=== PATIENT | male | born 1970 | race Caucasian/White ===

== ENCOUNTER 2022-02-05 12:48 | Inpatient (IN) | payer BC ==
[~2022-02-05] VITALS: Ht 182.9 cm; Wt 87.0 kg
--- NOTE | 2022-02-05 13:14 | PM&R Post Admission Assessment ---
PM&R Date of Visit: Feb 05, 2022 PM&R Allergy/Meds/Data Review Allergies Coded Allergies: No Known Drug Allergies (Unverified , 02/05/22) Home Medications Scheduled Aspirin (Aspirin), 81 MG PO DAILY, (Reported) Atorvastatin Calcium (Lipitor), 40 MG PO HS, (Reported) Physical Exam Physical Exam Vital Signs Capillary Refill : Height, Weight, BMI Height: '" Weight: lbs. oz. kg; BMI Method: PM&R Medical Assessment & Plan REHAB/MEDICAL ASSESSMENT AND PLAN: REHAB IMPAIRMENT GROUP: [ ] ETIOLOGIC DIAGNOSIS: [ (condition that led to rehab admission) ] The comorbidities that impact the patients function and/or functional outcome by: [ ] REHAB PLAN: The patient is being admitted to our comprehensive inpatient rehabilitation facility and can tolerate the intensity of service consisting of at least: 180 minutes of therapy a day, 5 out of 7 days a week Rehab treatment will consist of: [ (write brief focus that includes physician, rehab nursing and therapies/modalitiesIPOC will have more specifics) ] The patient/family has a good understanding of our discharge process and will benefit from an interdisciplinary inpatient rehabilitation program. The patient has potential to make improvement and is in need of at least two of the following multidisciplinary therapies including but not limited to physical, occupational, speech, and prosthetics and orthotics. Additionally the patient will need services from respiratory, nutritional services, wound care, psychology, etc. (Customize this to each patient). Given the patients complex condition and risk of further medical complications, rehabilitation services cannot be safely or effectively provided at a lower level of care such as a jail facility. BARRIERS TO DISCHARGE: [ ] ESTIMATED LOS: [ ] DISPOSITION: [ ] RELEVANT CHANGES SINCE PREADMISSION SCREENING: I have compared the patients medical and functional status at the time of the preadmission screening and there are: [no changes] [changes as follows: (if there is a discrepancy between the IGC/Etiologic stated on the PAS, address/clarify this as well) ] PROGNOSIS: [ ] REHABILITATION GOALS: 1. [ (specific to the patient) ] All the above goals were reviewed with the patient and he/she is in agreement. By signing this document, I acknowledge that I have personally performed a full physical examination on this patient within 24 hours of admission to this inpatient rehabilitation facility and have determined the patient to be able to tolerate the above course of treatment at an intensive level for a reasonable period of time. I will be completing a detailed individualized Plan of Care for this patient by day #4 of the patients stay based upon the Preadmission Screen, the Post-Admission Evaluation, and the therapy evaluations. ZENON BRITTON DO Feb 05, 2022 13:14
[2022-02-05] MEDS ORDERED: FLEET ENEMA ADULT 1 EA BTL PR PRN (13:15)
[2022-02-05] MEDS ORDERED: diphenhydrAMINE 25 MG TAB (BENADRYL) PO PRN (13:15)
[2022-02-05] MEDS ORDERED: guaiFENesin/CODEINE (ROBITUSSIN AC) 10ML UDC PO PRN (13:15)
[2022-02-05] MEDS ORDERED: ALPRAZolam 0.25 MG (XANAX) TAB PO PRN (13:15)
[2022-02-05] MEDS ORDERED: LACTULOSE SYRUP 10GM/15ML (ENULOSE) 30ML UDC PO PRN (13:15)
[2022-02-05] MEDS ORDERED: LOPERAMIDE 2 MG (IMODIUM) TABLET PO PRN (13:15)
[2022-02-05] MEDS ORDERED: MELATONIN 3 MG TABLET PO PRN (13:15)
[2022-02-05] MEDS ORDERED: BISACODYL 10 MG SUPP (DULCOLAX) PR PRN (13:15)
[2022-02-05] MEDS ORDERED: ENOXAPARIN 40 MG/0.4 ML (LOVENOX) SYR SC SCH (13:15)
[2022-02-05] MEDS ORDERED: DOCUSATE SODIUM 100 MG (COLACE) CAP PO PRN (13:15)
[2022-02-05] MEDS ORDERED: ACETAMINOPHEN 325 MG TABLET PO PRN (13:15)
[2022-02-05] MEDS ORDERED: ONDANSETRON 4 MG (ZOFRAN) ORAL DISSOLVE TAB PO PRN (13:15)
[2022-02-05] MEDS ORDERED: CALCIUM CARBONATE 500 MG (TUMS) TAB.CHEW PO PRN (13:15)
[2022-02-05] MEDS ORDERED: ASPI-999 PO (13:16)
[2022-02-05] MEDS ORDERED: ATOR40TA PO (13:16)
[2022-02-06 10:50] VITALS: BP 129/84
--- NOTE | 2022-02-06 11:43 | PM&R Post Admission Assessment ---
PM&R Date of Visit: Feb 06, 2022 Time of Visit: 17:00 History of Present Illness Chief complaint: CVA HPI: This is a 51-year-old male who presented from [facility] following a CVA. Symptoms started on 02/03/2022 at 1030 which included right-sided weakness and inability to speak clearly or find the words to speak. He contacted his family who brought him to the ER at [facility] and stroke protocol followed with CT normal but an opportunity to fly to [facility] for neuro interventional radiology and when he arrived it was assessed that he would benefit from tPA instead and was given that 4 hours after presentation. He had confusion and right-sided weakness with expressive aphasia at that time. He had no complications from tPA and therapy evaluated him. He was found to be a modesta date for inpatient rehab and considering he lives in [place] we accepted him. A PFO was diagnosed on echocardiogram and he was also given an external shoe repairer helper to evaluate source of cryptogenic stroke but it does appear the PFO is highly suspected. He will be maintained on aspirin and statin. Upon arrival he is made significant improvements in his stroke deficits and now it appears that he may not require inpatient rehab but will have the therapy team evaluate him tomorrow. He does still have word finding issues but those are improving. I noted creatinine of 1.6 and patient has a significant muscular structure so will initiate work-up for elevated testosterone levels that could give rise to stroke risks. Past Tgrqitc-Xxapzn-Qrvqnn Hx Past Med/Social Hx: Reviewed Nursing Past Med/Soc Hx, Reviewed and Corrections made Patient Social History Marrital Status: Alcohol Use: Occasionally Uses Recreational Drug Use: No Smoking Status: Never a Smoker Past Medical History Neurological: Stroke (02/03/22) PM&R Allergy/Meds/Data Review Allergies Coded Allergies: No Known Drug Allergies (Unverified , 02/05/22) Home Medications Scheduled Aspirin (Aspirin), 81 MG PO DAILY, (Reported) Atorvastatin Calcium (Lipitor), 40 MG PO HS, (Reported) Current Medications Current Medications Reviewed Review of Systems Constitutional: see HPI EENTM: no symptoms reported Respiratory: no symptoms reported Cardiovascular: no symptoms reported Gastrointestinal: no symptoms reported Genitourinary: no symptoms reported Musculoskeletal: no symptoms reported Skin: no symptoms reported Psychiatric/Neurological: Numbness (right hand), Weakness (prev right side) All Other Systems Reviewed Negative Unless Noted: Yes Physical Exam Physical Exam Vital Signs Capillary Refill : Height, Weight, BMI Height: '" Weight: lbs. oz. kg; BMI Method: General Appearance: No Apparent Distress, WD/WN Eyes: Bilateral Eye Normal Inspection, Bilateral Eye PERRL HEENT: PERRL/EOMI, Normal ENT Inspection, Pharynx Normal Neck: Full Range of Motion, Normal Inspection, Non Tender, Supple, Carotid Bruit Respiratory: Chest Non Tender, Lungs Clear, Normal Breath Sounds, No Accessory Muscle Use, No Respiratory Distress Cardiovascular: Regular Rate, Rhythm, No Edema, No Gallop, No JVD, No Murmur, Normal Peripheral Pulses Gastrointestinal: Normal Bowel Sounds, No Organomegaly, No Pulsatile Mass, Non Tender, Soft Back: Normal Inspection, No CVA Tenderness, No Vertebral Tenderness Extremity: Normal Capillary Refill, Normal Inspection, Normal Range of Motion, Non Tender, No Calf Tenderness, No Pedal Edema Neurologic/Psychiatric: Alert, Oriented x3, No Motor/Sensory Deficits, Normal Mood/Affect, confidential secretary II-XII Norm as Tested, Sensory Deficit (right fingers), Other (Expressive aphasia and word finding difficulties) Skin: Normal Color, Warm/Dry Lymphatic: No Adenopathy PM&R Medical Assessment & Plan REHAB/MEDICAL ASSESSMENT AND PLAN: REHAB IMPAIRMENT GROUP: CVA ETIOLOGIC DIAGNOSIS: CVA The comorbidities that impact the patients function and/or functional outcome by: Elevated creatinine, increased muscle mass ruling out exogenous testoster one/testicular dysfunction REHAB PLAN: The patient is being admitted to our comprehensive inpatient rehabilitation facility and can tolerate the intensity of service consisting of at least: 180 minutes of therapy a day, 5 out of 7 days a week Rehab treatment will consist of: PT and OT and speech will evaluate patient to assess any residual stroke affect but it appears tPA has resolved most issues except for word finding The patient/family has a good understanding of our discharge process and will benefit from an interdisciplinary inpatient rehabilitation program. The patient has potential to make improvement and is in need of at least two of the following multidisciplinary therapies including but not limited to physical, occupational, speech, and prosthetics and orthotics. Additionally the patient will need services from respiratory, nutritional services, wound care, psychology, etc. (Customize this to each patient). Given the patients complex condition and risk of further medical complications, rehabilitation services cannot be safely or effectively provided at a lower level of care such as a fpc facility. BARRIERS TO DISCHARGE: None ESTIMATED LOS: 3 days DISPOSITION: Home RELEVANT CHANGES SINCE PREADMISSION SCREENING: I have compared the patients medical and functional status at the time of the preadmission screening and there are: No changes PROGNOSIS: Good REHABILITATION GOALS: 1. PT and OT and speech will evaluate patient to assess any residual stroke affect but it appears tPA has resolved most issues except for word finding All the above goals were reviewed with the patient and he/she is in agreement. By signing this document, I acknowledge that I have personally performed a full physical examination on this patient within 24 hours of admission to this inpatient rehabilitation facility and have determined the patient to be able to tolerate the above course of treatment at an intensive level for a reasonable period of time. I will be completing a detailed individualized Plan of Care for this patient by day #4 of the patients stay based upon the Preadmission Screen, the Post-Admission Evaluation, and the therapy evaluations. Admission Dx/Comorbidities: (1) CVA (cerebral vascular accident) ICD Codes: I63.9 - Cerebral infarction, unspecified (2) PFO (patent foramen ovale) ICD Codes: Q21.12 - Patent foramen ovale (3) Renal insufficiency ICD Codes: N28.9 - Disorder of kidney and ureter, unspecified Assessment/Plan Assessment and Plan Assess & Plan/Chief Complaint Assessment: CVA status post tPA at [facility] on 02/03/2022 4 hours after symptoms after [facility] from [facility] in case neuro interventional radiology was required for cath tPA Right-sided weaknessresolved Expressive aphasiadramatically improved Word findingstill issues consulting speech therapy PFO on [facility] work-up consulting Dr. Tobar for referral for repair Elevated creatinine 1.6 performing work-up Increase muscle masswork-up for exogenous testosterone Oral tobacco use Plan: Dr. Tobar consult for PFO referral Work-up for kidney dysfunction Supportive care ZENON BRITTON DO Feb 06, 2022 11:43
[2022-02-06] MEDS: DOCUSATE SODIUM 100 MG (COLACE) CAP PO SCH ×3 (11:50→21:52)
[2022-02-06] MEDS: polyethylene glycoL POWDER 17 GM (MIRALAX) PACK PO SCH ×2 (11:51→21:55)
[2022-02-06] MEDS: SENNA W/DOCUSATE (SENOKOT S) TABLET PO SCH ×2 (11:51→21:53)
[2022-02-06] MEDS ORDERED: ENOXAPARIN 40 MG/0.4 ML (LOVENOX) SYR SC SCH ×2 (14:00)
[2022-02-06 17:33] LABS: ALBUMIN 4.2 GM/DL (3.2-4.5)
[2022-02-06 17:34] LABS: POTASSIUM 4.2 MMOL/L (3.6-5.0)
[2022-02-06 17:35] LABS: CALCIUM 9.5 MG/DL (8.5-10.1)
[2022-02-06 17:36] LABS: TOTAL PROTEIN 7.3 GM/DL (6.4-8.2)
[2022-02-06 17:38] LABS: BILIRUBIN,TOTAL 0.5 MG/DL (0.1-1.0)
[2022-02-06 17:40] LABS: CREATININE SERUM 1.65 MG/DL (0.60-1.30)
[2022-02-06 17:47] LABS: BASOPHILS % (AUTO) 0 % (0-10); EOSINOPHILS # (AUTO) 0.1 10^3/uL (0.0-0.3); EOSINOPHILS % (AUTO) 1 % (0-10); HEMATOCRIT 46 % (40-54); HEMOGLOBIN 15.6 g/dL (13.3-17.7); LYMPHOCYTES # (AUTO) 1.4 10^3/uL (1.0-4.0); LYMPHOCYTES % (AUTO) 19 % (12-44); MEAN CORPUSCULAR HEMOGLOBIN 31 pg (25-34); MEAN CORPUSCULAR HGB CONC 34 g/dL (32-36); MEAN CORPUSCULAR VOLUME 91 fL (80-99); MONOCYTES # (AUTO) 0.7 10^3/uL (0.0-1.0); MONOCYTES % (AUTO) 10 % (0-12); NEUTROPHILS # (AUTO) 4.8 10^3/uL (1.8-7.8); NEUTROPHILS % (AUTO) 68 % (42-75); PLATELET COUNT 300 10^3/uL (130-400); WHITE BLOOD COUNT 7.1 10^3/uL (4.3-11.0)
[2022-02-06 20:57] VITALS: BP 155/62
[2022-02-07 07:45] LABS: CREATININE SERUM 1.4 MG/DL (0.60-1.30); POTASSIUM 3.7 MMOL/L (3.6-5.0)
[2022-02-07 07:53] VITALS: BP 112/79
[2022-02-07] MEDS ORDERED: ASPIRIN 81 MG CHEW (CHILDREN'S ASA) PO SCH (09:00)
[2022-02-07] MEDS: polyethylene glycoL POWDER 17 GM (MIRALAX) PACK PO SCH (09:04)
[2022-02-07 10:26] LABS: BILIRUBIN,URINE NEGATIVE (NEGATIVE); CLARITY,URINE CLEAR; COLOR,URINE YELLOW; GLUCOSE, URINE (UA) NEGATIVE (NEGATIVE); KETONES,URINE NEGATIVE (NEGATIVE); LEUKOCYTE ESTERASE ,URINE NEGATIVE (NEGATIVE); NITRITE,URINE NEGATIVE (NEGATIVE); PH,URINE 6.5 (5-9); PROTEIN,URINE NEGATIVE (NEGATIVE)
--- NOTE | 2022-02-07 10:26 | Occupational Therapy Eval ---
OT Evaluation-General/PLF Medical Diagnosis Admission Date Feb 06, 2022 at 10:45 Medical Diagnosis: CVA Onset Date: Feb 03, 2022 Therapy Diagnosis Therapy Diagnosis: expressive aphasia Precautions Precautions/Isolations: Standard Precautions Referral Physician: Debby Luna Reason: Evaluation/Treatment Medical History Current History Pt presents from [facility] following a CVA. His symptoms were R sided weakness and expressive aphasia. He received tPA. Pt paranoid with all questions regarding PLOF. 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 Reviewed History: Yes Social History Home: [facility] Current Living Status: Alone ADL-Prior Level of Function SCALE: Activities may be completed with or without assistive devices. 4-Cwtwsjqmqn-euendrj completes the activity by him/herself with no assistance from a helper. 5-Set-up or Clean-up Assistance-helper sets up or cleans up; patient completes activity. [place] assists only prior to or following the activity. 4-Supervision or Touching Assistance-helper provides verbal cues and/or touching/steadying and/or contact guard assistance as patient completes acti vity. Assistance may be provided throughout the activity or intermittently. 3-Partial/Moderate Assistance-helper does LESS THAN HALF the effort. [place] lifts, holds or supports trunk or limbs, but provides less than half the effort. 2-Substantial/Maximal Assistance-helper does MORE THAN HALF the effort. [place] lifts or holds trunk or limbs and provides more than half the effort. 8-Rvyjjwznf-wftfql does ALL the effort. Patient does none of the effort to complete the activity. Or, the assistance of 2 or more helpers is required for the patient to complete the activity. If activity was not attempted, code reason: 7-Patient Refused. 9-Not Applicable-not attempted and the patient did not perform the activity before the current illness, exacerbation or injury. 10-Not Attempted due to Environmental Limitations-(lack of equipment, weather restraints, etc.). 88-Not Attempted due to Medical Conditions or Safety Concerns. Self Care: Independent Functional Cognition: Independent Drive Self: Yes OT Current Status Subjective Pt denies pain, reluctant to participate. Appearance Pt left sitting on side of bed with physical therapist entering room. Mental Status/Objective Patient Orientation: Person, Place, Situation Current Hearing Aids: No Dentures/Partials: No Hand Dominance: Right Upper Extremity ROM WFL Upper Extremity Strength WFL Epilepsy Physician strength: R 160 pounds, L 165 pounds, above average. ADL-Treatment Eating (QC): 6 Oral Hygiene (QC): 6 Shower/Bathe Self (QC): 6 Upper Body Dressing (QC): 6 Lower Body Dressing (QC): 6 On/Off Footwear (QC): 6 Toileting Hygiene (QC): 6 Pt independent with all adls and functional mobility. He refused shower but reports he was indep with taking one last night. He denies any vision changes and expresses that his only difficulty is his communication. Pt does have expressive aphasia. Education provided on stroke management. OT did provide him with green theraputty as pt verbalizes that his R hand is still minimally numb. Education OT Patient Education: Correct positioning, Exercise program, Purpose of tx/functional activities Teaching Recipient: Patient Teaching Methods: Discussion Response to Teaching: Verbalize Understanding, Return Demonstration BIMS CAM BIMS Expression of Ideas and Wants: Frequently Understanding Verbal Content: Understands Brief Interview/Mental Status: Yes IRF HARINI BIMS: IRF HARINI BIMS Response (Comments) Value Repitition of Three Words Three 3 Recalls Socks Yes, No Cue Required 2 Recalls Blue Yes, No Cue Required 2 Recalls Bed Yes, No Cue Required 2 Year Correct 3 Month Accurate Within 5 Days 2 Day Correct 1 Total 15 [address] Staff Asses. Mental St[address] No Notes: Pt does have difficulty getting words out but he was able to point while also trying to verbalize correct word (for example, pointing to sock but initially stated "sought" CAM Mental Status Change/Baseline: 0 Inattention: 0 Disorganized thinkin Altered level of consciousness: 0 OT Short Term Goals Short Term Goals Time Frame: Feb 07, 2022 Eatin Oral hygiene: 6 Toileting hygiene: 6 Shower/bathe self: 6 Upper body dressin Lower body dressin Putting on/taking off footwear: 6 OT Chain Sales Representative Goals Detention Goals Time Frame: Feb 08, 2022 Eating (QC): 6 Oral Hygiene (QC): 6 Toileting Hygiene (QC): 6 Shower/Bathe Self (QC): 6 Upper Body Dressing (QC): 6 Lower Body Dressing (QC): 6 On/Off Footwear (QC): 6 Additional Goals: 1-Demonstrate ADL Tasks, 2-Verbalize Understanding, 3- ImproveStrength/Steff 1=Demonstrate adherence to instructed precautions during ADL tasks. 2=Patient will verbalize/demonstrate understanding of assistive devices/modifications for ADL. 3=Patient will improve strength/tolerance for activity to enable patient to perform ADL's. OT Education/Plan Problem List/Assessment Assessment: No Skilled OT Needs ID'd Discharge Recommendations Plan/Recommendations: Discontinue OT Therapy Discharge Recommendati: Other, See Comments (outpatient speech therapy ) Treatment Plan/Plan of Care Treatment,Training & Education: Yes Patient would benefit from OT for education, treatment and training to promote independence in ADL's, mobility, safety and/or upper extremity function for ADL's. Plan of Care: ADL Retraining, Cognitive Retraining Treatment Duration: Feb 08, 2022 Frequency: 1 time per week Estimated Hrs Per Day: 1.5 hours per day Agreement: Yes Rehab Potential: Good Time Start Time: 09:15 Stop Time: 10:20 DATE: Feb 07, 2022 Total Time Billed (hr/min): 65 Billed Treatment Time 1 visit EVL (15 min) ADL x3 (50 min) Sully Puente OT Feb 07, 2022 10:26
[2022-02-07 10:33] LABS: BACTERIA,URINE NEGATIVE /HPF
--- NOTE | 2022-02-07 10:44 | Physical Therapy Evaluation ---
PT Evaluation-General Medical Diagnosis Admission Date Feb 06, 2022 at 10:45 Medical Diagnosis: CVA Onset Date: Feb 03, 2022 Therapy Diagnosis Therapy Diagnosis: independent with mobility Precautions Precautions/Isolations: Standard Precautions Referral Physician: Missy Guardado DO Reason for Referral: Evaluation/Treatment Medical History Reviewed History: Yes Social History Home: [facility] Current Living Status: Alone Prior Prior Level of Function SCALE: Activities may be completed with or without assistive devices. 7-Ajxnhqanew-wzafnxc completes the activity by him/herself with no assistance from a helper. 5-Set-up or Clean-up Assistance-helper sets up or cleans up; patient completes activity. [place] assists only prior to or following the activity. 4-Supervision or Touching Assistance-helper provides verbal cues and/or touching/steadying and/or contact guard assistance as patient completes activity. Assistance may be provided throughout the activity or intermittently. 3-Partial/Moderate Assistance-helper does LESS THAN HALF the effort. [place] lifts, holds or supports trunk or limbs, but provides less than half the effort. 2-Substantial/Maximal Assistance-helper does MORE THAN HALF the effort. [place] lifts or holds trunk or limbs and provides more than half the effort. 4-Tjhjvsdnm-xmswzj does ALL the effort. Patient does none of the effort to complete the activity. Or, the assistance of 2 or more helpers is required for the patient to complete the activity. If activity was not attempted, code reason: 7-Patient Refused. 9-Not Applicable-not attempted and the patient did not perform the activity before the current illness, exacerbation or injury. 10-Not Attempted due to Environmental Limitations-(lack of equipment, weather restraints, etc.). 88-Not Attempted due to Medical Conditions or Safety Concerns. Bed Mobility: 6 Transfers (B,C,W/C): 6 Gait: 6 Stairs: 6 Indoor Mobility (Ambulation): Independent Stairs: Independent PT Evaluation-Current Subjective Patient sitting EOB pre tx, agrees to PT, has no complaints of pain. Pain Section J - Health Conditions 1. Rarely or not at all 2. Occasionally 3. Frequently 4. Almost constantly 8. Unable to answer Pain Effect on Sleep: 1 Pain Interference with Therapy: 1 Pain Interference w/Day-to-Day: 1 Pt/Family Goals none stated Objective Patient Orientation: Person, Place, Situation ROM/Strength ROM Lower Extremities WNL Strength Lower Extremities LLE (hip flexion 5/5, knee flexion 5/5, knee extension 5/5, dorsiflexion 5/5), RLE (hip flexion 5/5, knee flexion 5/5, knee extension 5/5, dorsiflexion 5/5) Neuromuscular (Tone, Coordination, Reflexes) patient has intact peripheral vision and tracking Sensory Vision: Functional Hearing: Functional Hand Dominance: Right Sensation Right Lower Extremit: Intact Sensation Left Lower Extremity: Intact Sensation Lower Extremities Patient does have some complaints of numbness in right hand. Transfers Roll Left & Right (QC): 6 Sit to Lying (QC): 6 Lying to Sitting/Side of Bed(Q: 6 Sit to Stand (QC): 6 Chair/Wcq-eq-Emkvg Xfer(QC): 6 Toilet Transfer (QC): 6 Car Transfer (QC): 6 Independent, no cues needed for safety or positioning Gait Walk 10 feet (QC): 6 Walk 50 ft with 2 Turns(QC): 6 Walk 150 ft (QC): 6 Walking 10ft/uneven surface-QC: 6 Distance: 300' Gait Assistive Device: None Comments/Gait Description independent without an assistive device, brisk, normal ambulation Wheelchair Training Wheel 50 ft with 2 turns (QC): 9 Wheel 150 ft (QC): 9 Stairs 1 Step (curb) (QC): 6 4 Steps (QC): 6 12 Steps (QC): 6 no rails used, independent Balance Picking up an Object (QC): 6 (no physical therapist assistant used) Special Test Comments Patient scored 56/56 on the Gomez Balance Scale Assessment/Needs Patient is independent with all mobility and got a perfect score on the Gomez Balance Scale. Patient will be discharged from PT services at this time. Rehab Potential: Good PT Jail Goals Manager Msw Goals PT Jail Goals Time Frame: Feb 07, 2022 Roll Left to Right (QC): 6 Sit to Lying (QC): 6 Lying-Sitting on Side/Bed(QC): 6 Sit to Stand (QC): 6 Chair/Obq-fq-Vagoo Xfer(QC): 6 Toilet/Commode Transfer (QC): 6 Car Transfer (QC): 6 Walk 10 feet (QC): 6 Walk 10ft-Uneven Surface(QC): 6 Walk 50ft with 2 Turns (QC): 6 Walk 150 ft (QC): 6 Wheel 50 feet with 2 turns (QC: 9 Wheel 150 feet: 9 1 Step (curb) (QC): 6 4 Steps (QC): 6 12 Steps (QC): 6 Picking up an Object (QC): 6 PT Plan Treatment/Plan Treatment Plan: Discontinue PT Treatment Duration: Feb 07, 2022 Frequency: Patient and/or Family Agrees t: Yes Discharge Recommendations Plan discharge Therapy Discharge Recommendati: Home & Family Time Time In: 1020 Time Out: 1035 DATE: Feb 07, 2022 Total Billed Treatment Time: 15 Total Billed Treatment 1 visit EVL 15' ARIE ALLEN PT Feb 07, 2022 10:44
[2022-02-07] MEDS: SENNA W/DOCUSATE (SENOKOT S) TABLET PO SCH (11:29)
[2022-02-07] MEDS: DOCUSATE SODIUM 100 MG (COLACE) CAP PO SCH (11:29)
--- NOTE | 2022-02-07 11:46 | Therapy Team Discharge Summary ---
Therapy Discharge Summary Discharge Recommendations Date of Discharge Physical Therapy Patient came to rehab post CVA. Upon evaluation patient performed rolling and supine <-> sit with independence, sit <-> stand and transfers independent, car transfer independent, ambulates 300' without an assistive device with in dependence (including 50' with at least 2 turns of 90 degrees and 10' over an uneven surface), can go up and down 12 steps without using handrails with independence, and can pick up operator an object from the floor with independence. Patient scored 56/56 on the Gomez Balance Scale. Patient is being discharged from this facility today (same day as evaluation, no other treatment rendered) a nd will be discharged from PT at this time. Roll Left to Right (QC): 6 Sit to Lying (QC): 6 Lying to Sitting/Side of Bed(Q: 6 Sit to Stand (QC): 6 Chair/Mzt-dy-Xvbja Xfer(QC): 6 Toilet Transfer (QC): 6 Car Transfer (QC): 6 Walk 10 feet (QC): 6 Walk 50 ft with 2 Turns(QC): 6 Walk 150 ft (QC): 6 Walking 10ft on uneven surface: 6 Distance: 300' Gait Assistive Device: None Wheel 50 ft with 2 turns (QC): 9 Wheel 150 ft (QC): 9 1 Step (curb) (QC): 6 4 Steps (QC): 6 12 Steps (QC): 6 Picking up an Object (QC): 6 (no airplane electrician used) Occupational Therapy No Skilled OT Needs ID'd Eating (QC): 6 Oral Hygiene (QC): 6 Shower/Bathe Self (QC): 6 Upper Body Dressing (QC): 6 Lower Body Dressing (QC): 6 On/Off Footwear (QC): 6 Toileting Hygiene (QC): 6 PT Snf Goals Choreography Director Goals PT Choreography Director Goals Time Frame: Feb 07, 2022 Roll Left to Right (QC): 6 Sit to Lying (QC): 6 Lying-Sitting on Side/Bed(QC): 6 Sit to Stand (QC): 6 Chair/Bwd-er-Xqosq Xfer(QC): 6 Toilet/Commode Transfer (QC): 6 Car Transfer (QC): 6 Walk 10 feet (QC): 6 Walk 10ft-Uneven Surface(QC): 6 Walk 50ft with 2 Turns (QC): 6 Walk 150 ft (QC): 6 Wheel 50 feet with 2 turns (QC: 9 Wheel 150 feet: 9 1 Step (curb) (QC): 6 4 Steps (QC): 6 12 Steps (QC): 6 Picking up an Object (QC): 6 OT Snf Goals Snf Goals Time Frame: Feb 08, 2022 Acute change in mental status: 0 Inattention: 0 Disorganized thinkin Altered level of consciousness: 0 Eating (QC): 6 Oral Hygiene (QC): 6 Toileting Hygiene (QC): 6 Shower/Bathe Self (QC): 6 Upper Body Dressing (QC): 6 Lower Body Dressing (QC): 6 On/Off Footwear (QC): 6 Additional Goals: 1-Demonstrate ADL Tasks, 2-Verbalize Understanding, 3- ImproveStrength/Steff 1=Demonstrate adherence to instructed precautions during ADL tasks. 2=Patient will verbalize/demonstrate understanding of assistive devices/modifications for ADL. 3=Patient will improve strength/tolerance for activity to enable patient to perform ADL's. ARIE ALLEN PT Feb 07, 2022 11:46
[2022-02-07 12:00] VITALS: BP 112/79
[2022-02-07] MEDS ORDERED: ATOR40TA PO (12:01)
[2022-02-07] MEDS ORDERED: ASPI-999 PO (12:01)
--- NOTE | 2022-02-07 12:03 | Discharge Summary ---
Diagnosis/Chief Complaint Date of Admission Feb 06, 2022 at 10:45 Date of Discharge Discharge Date: Feb 07, 2022 Discharge Summary Discharge Physical Examination Allergies: Coded Allergies: No Known Drug Allergies (Unverified , 02/05/22) Vitals & I&Os Vital Signs Date Time Temp Pulse Resp B/P (MAP) Pulse Ox O2 Delivery O2 Flow Rate FiO2 02/07/22 07:53 36.2 63 18 112/79 (90) 97 Room Air Hospital Course Labs (last 24 hrs) Laboratory Tests 02/06/22 14:45: White Blood Count 7.1, Red Blood Count 5.02, Hemoglobin 15.6, Hematocrit 46, Mean Corpuscular Volume 91, Mean Corpuscular Hemoglobin 31, Mean Corpuscular Hemoglobin Concent 34, Red Cell Distribution Width 13.2, Platelet Count 300, Mean Platelet Volume 12.0, Immature Granulocyte % (Auto) 2, Neutrophils (%) (Auto) 68, Lymphocytes (%) (Auto) 19, Monocytes (%) (Auto) 10, Eosinophils (%) (Auto) 1, Basophils (%) (Auto) 0, Neutrophils # (Auto) 4.8, Lymphocytes # (Auto) 1.4, Monocytes # (Auto) 0.7, Eosinophils # (Auto) 0.1, Basophils # (Auto) 0.0, Immature Granulocyte # (Auto) 0.1, Sodium Level 140, Potassium Level 4.2, Chloride Level 106, Carbon Dioxide Level 25, Anion Gap 9, Blood Urea Nitrogen 15, Creatinine 1.65H, Estimat Glomerular Filtration Rate 50, BUN/Creatinine Ratio 9, Glucose Level 75, Calcium Level 9.5, Corrected Calcium 9.3, Total Bilirubin 0.5, Aspartate Amino Transf (AST/SGOT) 29, Alanine Aminotransferase (ALT/SGPT) 31, Alkaline Phosphatase 54, Total Protein 7.3, Albumin 4.2 02/07/22 06:58: Sodium Level 138, Potassium Level 3.7, Chloride Level 108H, Carbon Dioxide Level 23, Anion Gap 7, Blood Urea Nitrogen 15, Creatinine 1.40H, Estimat Glomerular Filtration Rate 60, BUN/Creatinine Ratio 11, Glucose Level 82, Calcium Level 9.0, Uric Acid 5.0, Lactate Dehydrogenase 185, Total Creatine Kinase 141, Serum Test, Qualitative NEGATIVE 02/07/22 07:40: Urine Color YELLOW, Urine Clarity CLEAR, Urine pH 6.5, Urine Specific [place] 1.020, Urine Protein NEGATIVE, Urine Glucose (UA) NEGATIVE, Urine Ketones NEGATIVE, Urine Nitrite NEGATIVE, Urine Bilirubin NEGATIVE, Urine Urobilinogen 0.2, Urine Leukocyte Esterase NEGATIVE, Urine RBC (Auto) NEGATIVE, Urine RBC NONE, Urine WBC NONE, Urine Crystals NONE, Urine Bacteria NEGATIVE, Urine Casts NONE, Urine Mucus NEGATIVE, Urine Culture Indicated NO Pending Labs Laboratory Tests 02/06/22 14:45: White Blood Count 7.1, Red Blood Count 5.02, Hemoglobin 15.6, Hematocrit 46, Mean Corpuscular Volume 91, Mean Corpuscular Hemoglobin 31, Mean Corpuscular Hemoglobin Concent 34, Red Cell Distribution Width 13.2, Platelet Count 300, Mean Platelet Volume 12.0, Immature Granulocyte % (Auto) 2, Neutrophils (%) (Auto) 68, Lymphocytes (%) (Auto) 19, Monocytes (%) (Auto) 10, Eosinophils (%) (Auto) 1, Basophils (%) (Auto) 0, Neutrophils # (Auto) 4.8, Lymphocytes # (Auto) 1.4, Monocytes # (Auto) 0.7, Eosinophils # (Auto) 0.1, Basophils # (Auto) 0.0, Immature Granulocyte # (Auto) 0.1, Sodium Level 140, Potassium Level 4.2, Chloride Level 106, Carbon Dioxide Level 25, Anion Gap 9, Blood Urea Nitrogen 15, Creatinine 1.65, Estimat Glomerular Filtration Rate 50, BUN/Creatinine Ratio 9, Glucose Level 75, Calcium Level 9.5, Corrected Calcium 9.3, Total Bilirubin 0.5, Aspartate Amino Transf (AST/SGOT) 29, Alanine Aminotransferase (ALT/SGPT) 31, Alkaline Phosphatase 54, Total Protein 7.3, Albumin 4.2 02/07/22 06:58: Sodium Level 138, Potassium Level 3.7, Chloride Level 108, Carbon Dioxide Level 23, Anion Gap 7, Blood Urea Nitrogen 15, Creatinine 1.40, Estimat Glomerular Filtration Rate 60, BUN/Creatinine Ratio 11, Glucose Level 82, Calcium Level 9.0, Uric Acid 5.0, Lactate Dehydrogenase 185, Total Creatine Kinase 141, Triglycerides Level [Pending], Cholesterol Level [Pending], LDL Cholesterol Direct [Pending], VLDL Cholesterol [Pending], HDL Cholesterol [Pending], Luteinizing Hormone [Pending], Testosterone Level [Pending], Free Testosterone (Calc) [Pending], Sex Hormone Binding Globulin [Pending], Serum Test, Qualitative NEGATIVE 02/07/22 07:40: Urine Color YELLOW, Urine Clarity CLEAR, Urine pH 6.5, Urine Specific [place] 1.020, Urine Protein NEGATIVE, Urine Glucose (UA) NEGATIVE, Urine Ketones NEGATIVE, Urine Nitrite NEGATIVE, Urine Bilirubin NEGATIVE, Urine Urobilinogen 0.2, Urine Leukocyte Esterase NEGATIVE, Urine RBC (Auto) NEGATIVE, Urine RBC NONE, Urine WBC NONE, Urine Crystals NONE, Urine Bacteria NEGATIVE, Urine Casts NONE, Urine Mucus NEGATIVE, Urine Culture Indicated NO Discharge Home Medications: Active Scripts Active Lipitor (Atorvastatin Calcium) 40 Mg Tablet 40 Mg PO HS Aspirin 81 Mg Tab.chew 81 Mg PO DAILY Instructions to patient/family Please see electronic discharge instructions given to patient. Diagnosis/Problems Diagnosis/Problems (1) CVA (cerebral vascular accident) Qualifiers: Qualified Codes: I63.9 - Cerebral infarction, unspecified (2) PFO (patent foramen ovale) (3) Renal insufficiency ZENON BRITTON DO Feb 07, 2022 12:03
--- NOTE | 2022-02-07 13:56 | ST Cognitive Linguistic Eval ---
Speech Evaluation-General Medical Diagnosis CVA Onset Date: Feb 03, 2022 Therapy Diagnosis Therapy Diagnosis: Expressive Aphasia Precautions Precautions/Isolations: Standard Precautions Referral Referring Physician: Dr. Guardado Reason for Referral: Evaluation/Treatment Medical History Current History The patient is a 51 year-old male, who presented to the ARU following a CVA with right sided weakness and expressive aphasia. Reviewed History: Yes Social History Current Living Status: Alone Speech PLF-Current Status Prior Level of Function Per patient, he did not experience word-finding difficulties prior to his stroke. The patient stated, "I didn't have the biggest vocabulary but it was okay." The patient denied challenges in the areas of receptive language, cognition, or oropharyngeal swallowing. Subjective The patient was seated at the edge of his bed or walking throughout his room during the evaluation. The patient greeted the clinician appropriately and was agreeable to participation in the language evaluation. Language Eval: Auditory Comprehends Simple Yes/No Ques: Functional Indent/Objects Multiple [place]: Functional (Paraphasia present.) Follows 1-Step Commands: Functional Follows General Conversations: Mild (Verbal redirection required.) Language Eval: Verbal Language Completes Spontaneous Greeting: Functional Produces Auto, Serial Info: Functional Word Finding: Moderate Requests Basic Needs: Mild (Gestures to aid in communication.) States Basic Personal Info: Functional (Paraphasia present.) Language Evaluation: Reading Comprehends Single Nouns: Functional Follows Simple Written Direct: Functional Comprehends Multiple Sentences: Functional Objective Cognitive Domain A complete cognitive assessment is recommended following improvement of word-finding skills. Objective Formal/Standardized Tests Unfortunately, the UMS ([facility] Mental Status Exam) could not be completed due to the patient's persistence with word-finding difficulties. Oral Motor/Speech Production The patient does not display dysarthria at this time. Impression The patient demonstrated moderate expressive aphasia with the presence of frequent anomia and paraphasia (whole word, single phoneme) appreciated. The clinician provided education to the patient regarding expressive aphasia, as well as, treatment options and strategies to improve the difficulty he is experiencing. At times, the evaluation was difficult to complete, as the patient continued to discuss his word0-finding difficulties and increased anxiety with the clinician. Frequent verbal re-direction was provided throughout the evaluation. Speech-Plan Treatment Plan Speech Therapy Treatment Plan: Discontinue ST (The patient is discharging on this date. Plan of Care not initiated by the clinician.) Treatment Duration: Feb 07, 2022 Frequency: 1 time per week Estimated Hrs Per Day: .5 hour per day Rehab Potential: Good Safety Risks/Education Teaching Recipient: Patient Teaching Methods: Demonstration, Handout, Discussion Response to Teaching: Verbalize Understanding, Return Demonstration Education Topics Provided: Results, Recommendations, Plan of Care, Word Finding Strategies, Word Finding Handouts Time Speech Therapy Time In: 10:35 Speech Therapy Time Out: 11:15 DATE: Feb 07, 2022 Total Billed Time: 40 Billed Treatment Time 1, LEXY MEHTA ELIZABETH ST Feb 07, 2022 13:56
--- NOTE | 2022-02-07 14:03 | Consultation-Cardiology ---
HPI-Cardiology Cardiology Consultation Date of Consultation 02/07/22 Date of Admission Time Seen by Provider: 13:58 Indication: Acute CVA HPI 51 years old gentleman with no significant past medical history, suffered from acute CVA on February 03, 2022 with right-sided weakness and slurred speech. Patient received tPA. Had resolution of his weakness but continued to have some level of slurred speech. He denied any previous cardiac history. Had no complication from the tPA. Patient was transferred for acute rehab. PFO was diagnosed by echocardiogram, has a heart monitor externally. He is maintained on aspirin and statin. Home Medications & Allergies Allergies: Coded Allergies: No Known Drug Allergies (Unverified , 02/05/22) Home Medication List Reviewed: Yes [id number] Hx Patient Social History Marital Status: Recreational Drug Use: No Smoking Status: Never a Smoker Have you traveled recently?: No Alcohol Use?: No Past Medical History No significant past history Family Medical History Significant Family History: No Pertinent Family Hx Review of Systems-General Review of Systems Constitutional: see HPI EENTM: no symptoms reported Respiratory: no symptoms reported Cardiovascular: no symptoms reported Gastrointestinal: no symptoms reported Genitourinary: no symptoms reported Musculoskeletal: no symptoms reported Skin: no symptoms reported Psychiatric/Neurological: Numbness (right hand), Weakness (prev right side) All Other Systems Reviewed Negative Unless Noted: Yes Reviewed Test Results Reviewed Test Results Lab Laboratory Tests Test 02/06/22 14:45 02/07/22 06:58 02/07/22 07:40 Range/Units White Blood Count 7.1 4.3-11.0 10^3/uL Red Blood Count 5.02 4.30-5.52 10^6/uL Hemoglobin 15.6 13.3-17.7 g/dL Hematocrit 46 40-54 % Mean Corpuscular Volume 91 80-99 fL Mean Corpuscular Hemoglobin 31 25-34 pg Mean Corpuscular Hemoglobin Concent 34 32-36 g/dL Red Cell Distribution Width 13.2 10.0-14.5 % Platelet Count 300 130-400 10^3/uL Mean Platelet Volume 12.0 9.0-12.2 fL Immature Granulocyte % (Auto) 2 % Neutrophils (%) (Auto) 68 42-75 % Lymphocytes (%) (Auto) 19 12-44 % Monocytes (%) (Auto) 10 0-12 % Eosinophils (%) (Auto) 1 0-10 % Basophils (%) (Auto) 0 0-10 % Neutrophils # (Auto) 4.8 1.8-7.8 10^3/uL Lymphocytes # (Auto) 1.4 1.0-4.0 10^3/uL Monocytes # (Auto) 0.7 0.0-1.0 10^3/uL Eosinophils # (Auto) 0.1 0.0-0.3 10^3/uL Basophils # (Auto) 0.0 0.0-0.1 10^3/uL Immature Granulocyte # (Auto) 0.1 0.0-0.1 10^3/uL Sodium Level 140 138 135-145 MMOL/L Potassium Level 4.2 3.7 3.6-5.0 MMOL/L Chloride Level 106 108 H 98-107 MMOL/L Carbon Dioxide Level 25 23 21-32 MMOL/L Anion Gap 9 7 5-14 MMOL/L Blood Urea Nitrogen 15 15 7-18 MG/DL Creatinine 1.65 H 1.40 H 0.60-1.30 MG/DL Estimat Glomerular Filtration Rate 50 60 BUN/Creatinine Ratio 9 11 Glucose Level 75 82 70-105 MG/DL Calcium Level 9.5 9.0 8.5-10.1 MG/DL Corrected Calcium 9.3 8.5-10.1 MG/DL Total Bilirubin 0.5 0.1-1.0 MG/DL Aspartate Amino Transf (AST/SGOT) 29 5-34 U/L Alanine Aminotransferase (ALT/SGPT) 31 0-55 U/L Alkaline Phosphatase 54 40-136 U/L Total Protein 7.3 6.4-8.2 GM/DL Albumin 4.2 3.2-4.5 GM/DL Uric Acid 5.0 2.6-7.2 MG/DL Lactate Dehydrogenase 185 125-220 U/L Total Creatine Kinase 141 30-200 U/L Serum Test, Qualitative NEGATIVE Urine Color YELLOW Urine Clarity CLEAR Urine pH 6.5 5-9 Urine Specific [place] 1.020 1.016-1.022 Urine Protein NEGATIVE NEGATIVE Urine Glucose (UA) NEGATIVE NEGATIVE Urine Ketones NEGATIVE NEGATIVE Urine Nitrite NEGATIVE NEGATIVE Urine Bilirubin NEGATIVE NEGATIVE Urine Urobilinogen 0.2 < = 1.0 MG/DL Urine Leukocyte Esterase NEGATIVE NEGATIVE Urine RBC (Auto) NEGATIVE NEGATIVE Urine RBC NONE /HPF Urine WBC NONE /HPF Urine Crystals NONE /LPF Urine Bacteria NEGATIVE /HPF Urine Casts NONE /LPF Urine Mucus NEGATIVE /LPF Urine Culture Indicated NO Physical Exam Physical Exam Vital Signs Vital Signs - First Documented 02/06/22 10:50 Temp 36.8 Pulse 57 Resp 20 B/P (MAP) 129/84 (99) Pulse Ox 100 O2 Delivery Room Air Capillary Refill : Height, Weight, BMI Height: '" Weight: lbs. oz. kg; 26.00 BMI Method: General Appearance: No Apparent Distress, WD/WN Eyes: Bilateral Eye Normal Inspection, Bilateral Eye PERRL HEENT: PERRL/EOMI, Normal ENT Inspection, Pharynx Normal Neck: Full Range of Motion, Normal Inspection, Non Tender, Supple, Carotid Bruit Respiratory: Chest Non Tender, Lungs Clear, Normal Breath Sounds, No Accessory Muscle Use, No Respiratory Distress Cardiovascular: Regular Rate, Rhythm, No Edema, No Gallop, No JVD, No Murmur, Normal Peripheral Pulses Gastrointestinal: Normal Bowel Sounds, No Organomegaly, No Pulsatile Mass, Non Tender, Soft Back: Normal Inspection, No CVA Tenderness, No Vertebral Tenderness Extremity: Normal Capillary Refill, Normal Inspection, Normal Range of Motion, Non Tender, No Calf Tenderness, No Pedal Edema Neurologic/Psychiatric: Alert, Oriented x3, No Motor/Sensory Deficits, Normal Mood/Affect, parts facilitator II-XII Norm as Tested, Sensory Deficit (right fingers), Other (Expressive aphasia and word finding difficulties) Skin: Normal Color, Warm/Dry Lymphatic: No Adenopathy A/P-Cardiology Admission Diagnosis Acute CVA Aphasia Patent randolph overall Assessment/Plan Acute embolic CVA, unknown source Reported that he had a PFO on echocardiogram, I did not receive the echo report. We will try to obtain copy of the report Patient has external heart monitor. I will continue monitoring closely He was started on aspirin, recommend adding Plavix as an outpatient Will arrange for evaluation for PFO closure if needed, will consider doing a JAYDEN Patient has significant improvement in his muscle strength, still having slurred speech. Aphasia, residual from his CVA on February 03, 2022. Receiving physical therapy. Possible discharge today. Questionable hyperlipidemia, I will evaluate lipid profile Increased muscle mass, evaluation for testosterone use. KT ALMENDAREZ MD Feb 07, 2022 14:03
[2022-02-07] MEDS ORDERED: CLOP-31 PO (14:13)
--- NOTE | 2022-02-07 14:13 | Discharge Summary ---
Diagnosis/Chief Complaint Date of Admission Feb 06, 2022 at 10:45 Date of Discharge Discharge Date: Feb 07, 2022 Discharge Diagnosis CVA s/p tpa now resolved right sided weakness, right sided facial droop and aphasia not with residual word finding difficulty Tobacco chewer PFO on ECHO TTE needs JAYDEN-consulted Dr Tobar Discharge Summary Discharge Physical Examination Allergies: Coded Allergies: No Known Drug Allergies (Unverified , 02/05/22) Vitals & I&Os Vital Signs Date Time Temp Pulse Resp B/P (MAP) Pulse Ox O2 Delivery O2 Flow Rate FiO2 02/07/22 12:00 36.2 63 18 112/79 97 Room Air General Appearance: Alert, Oriented X3, Cooperative Respiratory: Clear to Auscultation Cardiovascular: Regular Rate Psych/Mental Status: Mental Status NL Hospital Course Was the Problem List Reviewed?: Yes Short course after admitted for CVA on 02/03/22 s/p systemic tPA [place] [facility] [place] 10[place] and life flighted at 1240) to [place] in case neuro IR needed to place catheter approach tpa. He continued to improved rapidly after tpa and had no need for inpatient rehab since he was independent in PT OT and will need outpatient ST. Labs (last 24 hrs) Laboratory Tests 02/06/22 14:45: White Blood Count 7.1, Red Blood Count 5.02, Hemoglobin 15.6, Hematocrit 46, Mean Corpuscular Volume 91, Mean Corpuscular Hemoglobin 31, Mean Corpuscular Hemoglobin Concent 34, Red Cell Distribution Width 13.2, Platelet Count 300, Mean Platelet Volume 12.0, Immature Granulocyte % (Auto) 2, Neutrophils (%) (Auto) 68, Lymphocytes (%) (Auto) 19, Monocytes (%) (Auto) 10, Eosinophils (%) ( Auto) 1, Basophils (%) (Auto) 0, Neutrophils # (Auto) 4.8, Lymphocytes # (Auto) 1.4, Monocytes # (Auto) 0.7, Eosinophils # (Auto) 0.1, Basophils # (Auto) 0.0, Immature Granulocyte # (Auto) 0.1, Sodium Level 140, Potassium Level 4.2, Chloride Level 106, Carbon Dioxide Level 25, Anion Gap 9, Blood Urea Nitrogen 15, Creatinine 1.65H, Estimat Glomerular Filtration Rate 50, BUN/Creatinine Ratio 9, Glucose Level 75, Calcium Level 9.5, Corrected Calcium 9.3, Total Bilirubin 0.5, Aspartate Amino Transf (AST/SGOT) 29, Alanine Aminotransferase (ALT/SGPT) 31, Alkaline Phosphatase 54, Total Protein 7.3, Albumin 4.2 02/07/22 06:58: Sodium Level 138, Potassium Level 3.7, Chloride Level 108H, Carbon Dioxide Level 23, Anion Gap 7, Blood Urea Nitrogen 15, Creatinine 1.40H, Estimat Glomerular Filtration Rate 60, BUN/Creatinine Ratio 11, Glucose Level 82, Calcium Level 9.0, Uric Acid 5.0, Lactate Dehydrogenase 185, Total Creatine Kinase 141, Trig lycerides Level 56, Cholesterol Level 160, LDL Cholesterol Direct 106, VLDL Cholesterol 11, HDL Cholesterol 45, Serum Test, Qualitative NEGATIVE 02/07/22 07:40: Urine Color YELLOW, Urine Clarity CLEAR, Urine pH 6.5, Urine Specific [place] 1.020, Urine Protein NEGATIVE, Urine Glucose (UA) NEGATIVE, Urine Ketones NEGATIVE, Urine Nitrite NEGATIVE, Urine Bilirubin NEGATIVE, Urine Urobilinogen 0.2, Urine Leukocyte Esterase NEGATIVE, Urine RBC (Auto) NEGATIVE, Urine RBC NONE, Urine WBC NONE, Urine Crystals NONE, Urine Bacteria NEGATIVE, Urine Casts NONE, Urine Mucus NEGATIVE, Urine Culture Indicated NO Pending Labs Laboratory Tests 02/06/22 14:45: White Blood Count 7.1, Red Blood Count 5.02, Hemoglobin 15.6, Hematocrit 46, Mean Corpuscular Volume 91, Mean Corpuscular Hemoglobin 31, Mean Corpuscular Hemoglobin Concent 34, Red Cell Distribution Width 13.2, Platelet Count 300, Mean Platelet Volume 12.0, Immature Granulocyte % (Auto) 2, Neutrophils (%) (Auto) 68, Lymphocytes (%) (Auto) 19, Monocytes (%) (Auto) 10, Eosinophils (%) (Auto) 1, Basophils (%) (Auto) 0, Neutrophils # (Auto) 4.8, Lymphocytes # (Auto) 1.4, Monocytes # (Auto) 0.7, Eosinophils # (Auto) 0.1, Basophils # (Auto) 0.0, Immature Granulocyte # (Auto) 0.1, Sodium Level 140, Potassium Level 4.2, Chloride Level 106, Carbon Dioxide Level 25, Anion Gap 9, Blood Urea Nitrogen 15, Creatinine 1.65, Estimat Glomerular Filtration Rate 50, BUN/Creatinine Ratio 9, Glucose Level 75, Calcium Level 9.5, Corrected Calcium 9.3, Total Bilirubin 0.5, Aspartate Amino Transf (AST/SGOT) 29, Alanine Aminotransferase (ALT/SGPT) 31, Alkaline Phosphatase 54, Total Protein 7.3, Albumin 4.2 02/07/22 06:58: Sodium Level 138, Potassium Level 3.7, Chloride Level 108, Carbon Dioxide Level 23, Anion Gap 7, Blood Urea Nitrogen 15, Creatinine 1.40, Estimat Glomerular Filtration Rate 60, BUN/Creatinine Ratio 11, Glucose Level 82, Calcium Level 9.0, Uric Acid 5.0, Lactate Dehydrogenase 185, Total Creatine Kinase 141, Triglycerides Level 56, Cholesterol Level 160, LDL Cholesterol Direct 106, VLDL Cholesterol 11, HDL Cholesterol 45, Luteinizing Hormone [Pending], Testosterone Level [Pending], Free Testosterone (Calc) [Pending], Sex Hormone Binding Globulin [Pending], Serum Test, Qualitative NEGATIVE 02/07/22 07:40: Urine Color YELLOW, Urine Clarity CLEAR, Urine pH 6.5, Urine Specific [place] 1.020, Urine Protein NEGATIVE, Urine Glucose (UA) NEGATIVE, Urine Ketones NEGATIVE, Urine Nitrite NEGATIVE, Urine Bilirubin NEGATIVE, Urine Urobilinogen 0.2, Urine Leukocyte Esterase NEGATIVE, Urine RBC (Auto) NEGATIVE, Urine RBC NONE, Urine WBC NONE, Urine Crystals NONE, Urine Bacteria NEGATIVE, Urine Casts NONE, Urine Mucus NEGATIVE, Urine Culture Indicated NO Discharge Home Medications: Active Scripts Active Plavix (Clopidogrel Bisulfate) 75 Mg Tablet 75 Mg PO DAILY Start taking on 02/10/2022 Lipitor (Atorvastatin Calcium) 40 Mg Tablet 40 Mg PO HS Aspirin 81 Mg Tab.chew 81 Mg PO DAILY Instructions to patient/family Please see electronic discharge instructions given to patient. Diagnosis/Problems Diagnosis/Problems (1) CVA (cerebral vascular accident) Qualifiers: Qualified Codes: I63.9 - Cerebral infarction, unspecified (2) PFO (patent foramen ovale) (3) Renal insufficiency ZENON BRITTON DO Feb 07, 2022 14:13
[2022-02-07 14:27] LABS: CHOLESTEROL 160 MG/DL (< 200); HDL CHOLESTEROL 45 MG/DL (40-60); TRIGLYCERIDES 56 MG/DL (<150); VLDL CHOLESTEROL 11 MG/DL (5-40)
== END 2022-02-07 12:00 | disposition home or self-care (01) | DRG 57 ==
PROVIDERS: ADMIT Internal Medicine; ATTEND Internal Medicine
DX: I69.320 Aphasia following cerebral infarction (principal); Q21.12 Patent foramen ovale; N28.9 Disorder of kidney and ureter, unspecified; F17.220 Nicotine dependence, chewing tobacco, uncomplicated; M62.9 Disorder of muscle, unspecified
CPT/HCPCS: 36415; 80048; 80053; 80061; 81000; 82550; 83002; 83615; 84270; 84403; 84550; 84703; 85025

== ENCOUNTER → 2022-02-25 | Outpatient (CLI) | payer BC ==
[~2022-02-25] MED LIST: ASPI-999 PO; ATOR40TA PO; CATHETER FLUSH 10 ML SYR IV PRN; CLOP-31 PO; HOLD METFORMIN - RECEIVED CONTRAST 20 ML VIAL IV SCH; IOHEXOL 350 MG/ML 100 ML (OMNIPAQUE 350) VIAL IV ONE; NITROGLYCERIN 0.4 MG SL TABS BTL 25'S SL ONE; NS 100 ML (IVPB) BAG IV ONE; meTOprolol 5 MG/5 ML (LOPRESSOR) VIAL IV PRN
--- NOTE | 2022-02-25 14:33 | Diagnostic Imaging Report ---
EXAMINATION: CTA of the coronary arteries. TECHNIQUE: Contrast enhanced thin section helical images were obtained through the heart and coronary arteries with intravenous contrast timed for the optimal opacification of the coronary arterial structures per gated CTA protocol. Post-processing, reconstructions and interpretation of angiographic images of the vessels was performed. 3D MIP reconstructions were performed and reviewed. All CT scans use one or more of the following dose optimizing techniques: automated exposure control, MA and/or KvP adjustment based on a patient size and exam type, or iterative reconstruction. HISTORY: Transient ischemic attack COMPARISON: None available. FINDINGS: Left main coronary artery is normal. Left anterior descending artery is normal. Circumflex artery is normal. Right coronary artery is normal. No significant plaquing or stenosis is seen. The coronary arteries are co-dominant. There is no anomalous coronary artery origin or course. There is no myocardial bridging. There is no ventricular dilation or hypertrophy. Both atria are normal in size. Aorta is normal in caliber. No intracardiac shunt is seen. There is no edema or pneumonia. No pleural effusion. No pneumothorax. No suspicious nodules. No pericardial effusion. There is no axillary or supraclavicular lymphadenopathy. There is no mediastinal lymphadenopathy. Limited views of the upper abdomen are unremarkable. There are no suspicious osseus lesions. IMPRESSION: 1. Normal coronary arteries. 2. No intracardiac shunt is seen. However, CT is not sensitive for small intracardiac shunts. Dictated by: Dictated on workstation # [id number]
== END ==
LOC: RAD 12:45
PROVIDERS: ATTEND Internal Medicine Cardiovascular Disease
DX: Z86.73 Personal history of transient ischemic attack (TIA), and cerebral infarction without residual deficits (principal)
CPT/HCPCS: 75574

== ENCOUNTER 2022-03-04 07:41 | Day surgery (SDC) | payer BC ==
[2022-03-04] VITALS (14 sets, daily range): BP systolic 102–134; BP diastolic 60–86
[~2022-03-04] VITALS: Ht 182.9 cm; Wt 88.5 kg
[~2022-03-04 07:41] MED LIST changes: -CATHETER FLUSH 10 ML SYR IV PRN; -HOLD METFORMIN - RECEIVED CONTRAST 20 ML VIAL IV SCH; -IOHEXOL 350 MG/ML 100 ML (OMNIPAQUE 350) VIAL IV ONE; -NITROGLYCERIN 0.4 MG SL TABS BTL 25'S SL ONE; -NS 100 ML (IVPB) BAG IV ONE; -meTOprolol 5 MG/5 ML (LOPRESSOR) VIAL IV PRN
[2022-03-04] MEDS ORDERED: NS IV 1000 ML 1,000 ML IV SCH (07:45)
[2022-03-04] MEDS ORDERED: NS IV 1000 ML 1,000 ML ONE (07:48)
[2022-03-04] MEDS ORDERED: LIDOCAINE 2% VISCOUS 15 ML UDC ONE (07:48)
--- NOTE | 2022-03-04 08:12 | Diagnostic Imaging Report ---
INDICATION: CVA. EXAMINATION: Portable chest at 7:57 AM. FINDINGS: The heart size and pulmonary vascularity are normal. The lungs are clear. There are no effusions or pneumothoraces. IMPRESSION: Negative chest. Dictated by: Dictated on workstation # [id number]
[2022-03-04 08:25] LABS: HEMATOCRIT 46 % (40-54); HEMOGLOBIN 15.9 g/dL (13.3-17.7); MEAN CORPUSCULAR HEMOGLOBIN 31 pg (25-34); MEAN CORPUSCULAR HGB CONC 35 g/dL (32-36); MEAN CORPUSCULAR VOLUME 89 fL (80-99); MEAN PLATELET VOLUME 11.3 fL (9.0-12.2); PLATELET COUNT 248 10^3/uL (130-400); WHITE BLOOD COUNT 5.9 10^3/uL (4.3-11.0)
[2022-03-04 08:26] LABS: BILIRUBIN,URINE NEGATIVE (NEGATIVE); CLARITY,URINE CLEAR; COLOR,URINE YELLOW; GLUCOSE, URINE (UA) NEGATIVE (NEGATIVE); KETONES,URINE NEGATIVE (NEGATIVE); LEUKOCYTE ESTERASE ,URINE NEGATIVE (NEGATIVE); NITRITE,URINE NEGATIVE (NEGATIVE); PH,URINE 5.5 (5-9); PROTEIN,URINE NEGATIVE (NEGATIVE)
--- NOTE | 2022-03-04 08:34 | Cardiac Procedure Note-CS/ASA ---
Pre-Procedure Note Pre-Op Procedure Note Date of Available H&P: Mar 01, 2022 Date H&P Reviewed: Mar 04, 2022 Time H&P Reviewed: 08:33 History & Physical: H&P Reviewed, Patient Examed, No changes noted Pre-Operative Diagnosis: CVA Conscious Sedation Pre-Proced Time 08:33 ASA Score 3 For ASA 3 and 4: Consider anesthesia and medical clearance. Also, for patients with a history of failed moderate sedation consider anesthesia. Airway Lungs Heart ASA score ASA 1: a normal healthy patient ASA 2: a patient with a mild systemic disease (mid diabetes, controlled hypertension, obesity ASA 3: a patient with a severe systemic disease that limits activity (angina, COPD, prior Myocardial infarction) ASA 4: a patient with an incapacitating disease that is a constant threat to life (CHF, renal failure) ASA 5: a moribund patient not expected to survive 24 hrs. (ruptured aneurysm) ASA 6: a declared brain- patient whose organs are being harvested. For emergent operations, add the letter E after the classification Mallampati Classification Grade 3 Sedation Plan Analgesia, Amnesia, Plan communicated to team members, Discussed options with patient/fam, Discussed risks with patient/fam The patient is an appropriate candidate to undergo the planned procedure, sedation, and anesthesia. The patient immediately re-assessed prior to indication. KT ALMENDAREZ MD Mar 04, 2022 08:34
[2022-03-04 08:44] LABS: PROTHROMBIN TIME PATIENT 13.7 SEC (12.2-14.7)
[2022-03-04 08:46] LABS: BACTERIA,URINE NEGATIVE /HPF; WBC,URINE RARE /HPF
[2022-03-04 08:49] LABS: ALBUMIN 3.9 GM/DL (3.2-4.5); BILIRUBIN,TOTAL 0.6 MG/DL (0.1-1.0); CREATININE SERUM 1.29 MG/DL (0.60-1.30); POTASSIUM 3.9 MMOL/L (3.6-5.0); TOTAL PROTEIN 6.7 GM/DL (6.4-8.2)
[2022-03-04] MEDS ORDERED: MIDAZOLAM 2 MG/2 ML (VERSED) VIAL ONE (08:51)
[2022-03-04] MEDS ORDERED: proPOfol 200 MG/20 ML (DIPRIVAN) VIAL IV ONE (08:52)
[2022-03-04] MEDS ORDERED: LIDOCAINE 2% VISCOUS 15 ML UDC PO ONE (08:55)
--- NOTE | 2022-03-04 09:18 | Anesthesia-General Post-Op ---
MAC Patient Condition Mental Status/LOC: Same as Preop Cardiovascular: Satisfactory Nausea/Vomiting: Absent Respiratory: Satisfactory Pain: Controlled Complications: Absent Post Op Complications Complications None Follow Up Care/Instructions Patient Instructions None needed. Anesthesiology Discharge Order Discharge Order Patient is doing well, no complaints, stable vital signs, no apparent adverse anesthesia problems. No complications reported per nursing. DANIELITO OSEGUERA CRNA Mar 04, 2022 09:18
--- NOTE | 2022-03-04 10:42 | Discharge Inst-Post CATH ---
Discharge Inst-CATH/EP Problems Reviewed?: Yes Post Cardiac Cath/EP D/C Inst Follow Up/Plan Appointment with Dr. Micah Conley in the next 1 to [address] Tobar's office in 2 to 4 weeks <b>CARDIAC CATH/EP PROCEDURE DISCHARGE INSTRUCTIONS</b> ACTIVITY * Go Home directly and rest. * Limit activity of the leg (or wrist if it was used) for 7 days including aerobics, swimming, jogging, bicycling, etc. * Restrict stair-climbing for 7 days if possible, if not, climb up with your non-cath leg, then bring together on the same step. * Avoid lifting, pushing, pulling or excessive movement of the affected extremity for 7 days. * Customary sexual activity may be resumed after 2 days-use caution not to use a position that strains or causes pain to the affected extremity. * No driving for 24 hours. * NO SMOKING. * Avoid straining for bowel movements for 7 days. * Gentle walking on level ground is allowed. * Returning to work will depend on the type of procedure and the results. Your doctor will discuss this with you. CALL YOUR DOCTOR FOR ANY OF THE FOLLOWING: *If bleeding from the puncture site occurs- Apply gentle pressure to site with clean cloth and call your doctor or EMS. * If a knot or lump forms under the skin, increases in size, or causes pain. * If bruising appears to be worsening or moving further down your leg instead of disappearing. * Temperature above 101 F. CARE OF YOUR GROIN INCISION; * Bruising or purple discoloration of the skin near the puncture site is common. * You may shower only, no bathtub bathing for 5 days. Be careful to avoid slipping as your leg may feel stiff. * If a closure device was used on your femoral artery, please see the attached guide regarding care of the device and your leg. * Leave dressing on FOR 24 hours. CARE OF YOUR WRIST INCISION; * Bruising or purple discoloration of the skin near the puncture site is common. * You may shower. * DO NOT submerge wrist. * Leave dressing on FOR 24 hours. KT TOBAR MD Mar 04, 2022 10:42
--- NOTE | 2022-03-04 10:43 | Clinic Account Progress/Dx ---
Clinic Account Progress/Dx DIAGNOSIS: Date Seen by Provider: Mar 04, 2022 Time Seen by Provider: 10:43 CVA Hypertension ASD KT ALMENDAREZ MD Mar 04, 2022 10:43
[2022-03-04] MEDS ORDERED: CLOP-31 PO (10:48)
[2022-03-04] MEDS ORDERED: ATOR40TA PO (10:50)
== END 2022-03-04 11:45 | disposition home or self-care (01) ==
LOC: CATH 07:41
PROVIDERS: ATTEND Internal Medicine Cardiovascular Disease
DX: I63.9 Cerebral infarction, unspecified (principal); I10 Essential (primary) hypertension; I51.0 Cardiac septal defect, acquired; I34.0 Nonrheumatic mitral (valve) insufficiency
CPT/HCPCS: 36415; 71045; 80053; 81000; 85027; 85610; 85730; 87081; 93005; 93312

== ENCOUNTER 2022-03-22 10:23 | Outpatient (RCR) | payer BC ==
[2022-03-22 12:23] LABS: ABSOLUTE RETIC # 62 10e9/uL (24-90); BASOPHILS % (AUTO) 1 % (0-10); EOSINOPHILS # (AUTO) 0.1 10^3/uL (0.0-0.3); EOSINOPHILS % (AUTO) 1 % (0-10); HEMATOCRIT 47 % (40-54); HEMOGLOBIN 16.1 g/dL (13.3-17.7); LYMPHOCYTES # (AUTO) 0.9 10^3/uL (1.0-4.0); LYMPHOCYTES % (AUTO) 17 % (12-44); MEAN CORPUSCULAR HEMOGLOBIN 31 pg (25-34); MEAN CORPUSCULAR HGB CONC 34 g/dL (32-36); MEAN CORPUSCULAR VOLUME 89 fL (80-99); MEAN PLATELET VOLUME 10.9 fL (9.0-12.2); MONOCYTES # (AUTO) 0.6 10^3/uL (0.0-1.0); MONOCYTES % (AUTO) 11 % (0-12); NEUTROPHILS # (AUTO) 3.8 10^3/uL (1.8-7.8); NEUTROPHILS % (AUTO) 70 % (42-75); PLATELET COUNT 300 10^3/uL (130-400); RETICULOCYTE % 1.17 % (0.50-2.40); WHITE BLOOD COUNT 5.5 10^3/uL (4.3-11.0)
[2022-03-22 12:35] LABS: ALBUMIN 4.4 GM/DL (3.2-4.5); POTASSIUM 3.7 MMOL/L (3.6-5.0)
[2022-03-22 12:36] LABS: CALCIUM 9.4 MG/DL (8.5-10.1)
[2022-03-22 12:38] LABS: TOTAL PROTEIN 7.7 GM/DL (6.4-8.2)
[2022-03-22 12:40] LABS: BILIRUBIN,TOTAL 1.1 MG/DL (0.1-1.0)
[2022-03-22 12:41] LABS: CREATININE SERUM 1.3 MG/DL (0.60-1.30)
== END 2022-04-05 | disposition home or self-care (01) ==
LOC: ONC 10:23
PROVIDERS: ATTEND Internal Medicine Hematology & Oncology
DX: Z86.73 Personal history of transient ischemic attack (TIA), and cerebral infarction without residual deficits (principal); I69.320 Aphasia following cerebral infarction; Z79.02 Long term (current) use of antithrombotics/antiplatelets
CPT/HCPCS: 80053; 81240; 81241; 83090; 83615; 85025; 85045; 85300; 85302; 85305; 85307; 85610; 85613; 85705; 85730; 86146; 86147

== ENCOUNTER 2022-07-15 12:44 | Inpatient (IN) | payer BC ==
[~2022-07-15] VITALS: Ht 182 cm; Wt 88.5 kg
[2022-07-15] MEDS ORDERED: GADOTERATE 0.5 MMOL/ML (CLARISCAN) 20 ML VIAL IV ONE (13:45)
[2022-07-15] MEDS ORDERED: LORazepam INJ 2 MG/ML (ATIVAN) VIAL ONE (14:21)
[2022-07-15] MEDS ORDERED: CALCIUM CARBONATE 500 MG (TUMS) TAB.CHEW PO PRN (14:30)
[2022-07-15] MEDS ORDERED: LORazepam INJ 2 MG/ML (ATIVAN) VIAL IVP PRN (14:30)
[2022-07-15] MEDS ORDERED: MILK OF MAGNESIA 400 MG/5 ML 30 ML UDC PO PRN (14:30)
[2022-07-15] MEDS ORDERED: ANTACID SUSP 30 ML UDC (MYLANTA) PO PRN (14:30)
[2022-07-15] MEDS ORDERED: ONDANSETRON 4 MG (ZOFRAN) ORAL DISSOLVE TAB PO PRN (14:30)
[2022-07-15] MEDS ORDERED: diphenhydrAMINE 50 MG/ML INJ (BENADRYL) IVP PRN (14:30)
[2022-07-15] MEDS ORDERED: LACTULOSE SYRUP 10GM/15ML (ENULOSE) 30ML UDC PO PRN (14:30)
[2022-07-15] MEDS ORDERED: BISACODYL 10 MG SUPP (DULCOLAX) PR PRN (14:30)
[2022-07-15] MEDS ORDERED: ONDANSETRON 4 MG/2 ML (SDV) Z0FRAN IV PRN (14:30)
[2022-07-15] MEDS ORDERED: HYDROmorphone 2 MG/ML VIAL (DILAUDID) IV PRN (14:30)
[2022-07-15] MEDS ORDERED: ACETAMINOPHEN 325 MG TABLET PO PRN (14:30)
[2022-07-15] MEDS ORDERED: NS IV 500 ML 500 ML IV PRN (14:30)
[2022-07-15] MEDS ORDERED: NS IV 1000 ML 1,000 ML IV SCH (14:30)
[2022-07-15] MEDS ORDERED: LORazepam 0.5 MG (ATIVAN) TABLET PO PRN (14:30)
[2022-07-15] MEDS ORDERED: diphenhydrAMINE 25 MG TAB (BENADRYL) PO PRN (14:30)
[2022-07-15] MEDS ORDERED: MELATONIN 3 MG TABLET PO PRN (14:30)
[2022-07-15] MEDS ORDERED: polyethylene glycoL POWDER 17 GM (MIRALAX) PACK PO PRN (14:30)
--- NOTE | 2022-07-15 14:35 | Occ Therapy Progress Note ---
Therapy Progress Note OT Order received, Patient in MRI. OT will monitor for next available opportunity PINA RANGEL OT Jul 15, 2022 14:35
--- NOTE | 2022-07-15 14:58 | Speech Therapy Progress Note ---
Therapy Progress Note Speech pathology attempted the evaluation at 1457. At this time, the patient is not in his room, currently at MRI. ST will reattempt on the subsequent treatment date 07/18/22. Thank you for the consultation. SMOOTH SAMUEL Jul 15, 2022 14:58
[2022-07-15] MEDS ORDERED: ENOXAPARIN 40 MG/0.4 ML (LOVENOX) SYR SC SCH (15:00)
--- NOTE | 2022-07-15 15:21 | History & Physical ---
History of Present Illness HPI/Chief Complaint Chief complaint: Recurrent CVA HPI: This is a 52-year-old male clinic patient of mine with a prior stroke earlier this year which prompted [facility] to fly him to [facility] for possible neuro radiology intervention but upon evaluation they just gave him tPA and he had almost complete resolution of his symptoms except for expressive aphasia and right hand numbness remained. Dr. Tobar assessed him upon arrival to inpatient rehab at that time and performed a JAYDEN which revealed a PFO. He was sent to [place] as an outpatient and met with the brass finisher who specializes in repair of PFO's but neurology evaluation and hypercoagulable work-up was done first before considering PFO repair. He does have a family history of PFO's. He was just recently taken off Plavix. He presented to [facility] with left arm and hand numbness and difficulty speaking with left swollen tongue. By the time he arrived in the ER those symptoms were resolved. I spoke with Dr. Tobar who will see him in consultation since the PFO seems to be the etiology of these recurrent strokes. I did speak with Dr. Ricardo who recommended MRI with and without IV contrast and CT angiogram would not be helpful if symptoms had already resolved they are only sensitive to large thrombus and that would not match his presentation at this current time. Radiology reported left parietal older cva MRI: 2 tiny micro-infarcts 1 on each hemisphere frontal and parietal infarcts embolic type Source: patient Exam Limitations: no limitations Date Seen 07/15/22 Time Seen by a Provider: 18:00 Attending Physician Missy Guardado DO PCP Admitting Physician: Missy Guardado DO Attending Physician: Missy Guardado DO Referring Physician Date of Admission Jul 15, 2022 at 13:59 Home Medications & Allergies Home Medications Reviewed patient Home Medication Reconciliation performed by pharmacy medication reconciliations facility maintenance technician and/or nursing. Patients Allergies have been reviewed. Allergies Allergies Coded Allergies atorvastatin (Verified Allergy, Unknown, 07/15/22) Past Wlphvzo-Xrwofz-Tygxds Hx Past Med/Social Hx: Reviewed Nursing Past Med/Soc Hx, Reviewed and Corrections made Patient Social History Marrital Status: Employed/Student: employed Alcohol Use: Occasionally Uses Smoking Status: Never a Smoker Type Used: Smokeless Tobacco Past Medical History Neurological: Stroke Family History No Pertinent Family Hx Review of Systems Constitutional: see HPI, dizziness, malaise, weakness EENTM: see HPI Respiratory: see HPI Cardiovascular: see HPI Gastrointestinal: see HPI Genitourinary: see HPI Musculoskeletal: see HPI Skin: see HPI Psychiatric/Neurological: Weakness Physical Exam Physical Exam Vital Signs Vital Signs - First Documented 07/15/22 07/15/22 07/15/22 07/15/22 07/15/22 15:05 15:18 15:19 15:58 21:00 Temp 36.7 Pulse 72 Resp 20 B/P (MAP) 119/76 (90) Pulse Ox 96 O2 Delivery Room Air FiO2 21 Capillary Refill : Height, Weight, BMI Height: '" Weight: lbs. oz. kg; 26.45 BMI Method: General Appearance: No Apparent Distress, WD/WN Eyes: Bilateral Eye Normal Inspection, Bilateral Eye PERRL HEENT: PERRL/EOMI, Normal ENT Inspection, Pharynx Normal Neck: Full Range of Motion, Normal Inspection, Non Tender, Supple, Carotid Bruit Respiratory: Chest Non Tender, Lungs Clear, Normal Breath Sounds, No Accessory Muscle Use, No Respiratory Distress Cardiovascular: Regular Rate, Rhythm, No Edema, No Gallop, No JVD, No Murmur, Normal Peripheral Pulses Gastrointestinal: Normal Bowel Sounds, No Organomegaly, No Pulsatile Mass, Non Tender, Soft Back: Normal Inspection, No CVA Tenderness, No Vertebral Tenderness Extremity: Normal Capillary Refill, Normal Inspection, Normal Range of Motion, Non Tender, No Calf Tenderness, No Pedal Edema Neurologic/Psychiatric: Alert, Oriented x3, Normal Mood/Affect, Motor Weakness (Subtle left hand weakness) Skin: Normal Color, Warm/Dry Lymphatic: No Adenopathy Results Results/Procedures Labs Laboratory Tests 07/16/22 03:48 Patient resulted labs reviewed. Assessment/Plan Admission Diagnosis Assessment: Recurrent CVA with left arm weakness and left tongue involvement now resolved with MRI confirmed microinfarcts bilaterally suspicious for embolic stroke PFO without repair at present date Testosterone supplement in the past Plavix recently discontinued Plan: MRI with and without contrast Cardiology consult Plavix and aspirin Statin Therapy evaluation Admission Status: Inpatient Order (span 2 midnights) Reason for Inpatient Admission: cva MISSY GUARDADO DO Jul 15, 2022 15:21
--- NOTE | 2022-07-15 15:29 | Diagnostic Imaging Report ---
PROCEDURE: MR imaging of the brain with and without contrast. TECHNIQUE: Multiplanar, multisequence MR imaging of the brain was performed with and without contrast. INDICATION: Recent left-sided weakness and possible stroke. No prior MRI studies are available for comparison. FINDINGS: Diffusion-weighted image shows a tiny focus of restriction in the right frontoparietal lobe cortex. There is also a small focus of restriction in the left posterior parieto-occipital region. Features are consistent with microinfarcts. The normal expected flow-voids within the carotid siphons are seen. No mass effect or midline shift is identified. No acute intra-axial or extra-axial hemorrhage is identified. There is an area of more subacute to chronic infarct in the left posterior frontoparietal lobe with associated minimal laminar necrosis. No abnormal enhancement following contrast administration is seen. The corpus callosum is unremarkable. Sella and parasellar structures are unremarkable. IMPRESSION: 1. There appears to be an older infarct in the left posterior MCA territory. In addition, there are two microinfarcts that appear acute, one in the right frontal lobe the second in the left posterior parieto-occipital lobe. The bilateral nature suggests an embolic phenomenon. No acute intracranial hemorrhage is detected. Results were discussed with Dr. Missy Guardado prior to this dictation. Dictated by: Dictated on workstation # [id number]
[2022-07-15] MEDS ORDERED: ASPI325T32 PO (15:45)
[2022-07-15 15:58] VITALS: BP 119/76
[2022-07-15 16:03] LABS: TRIGLYCERIDES 48 MG/DL (<150); VLDL CHOLESTEROL 10 MG/DL (5-40)
[2022-07-15 16:08] LABS: CHOLESTEROL 202 MG/DL (< 200); HDL CHOLESTEROL 47 MG/DL (40-60)
[2022-07-15] MEDS ORDERED: RT-ALBUTEROL SULF 2.5 MG/3 ML PRE-MIX VIAL INH PRN (16:45)
--- NOTE | 2022-07-15 18:33 | Tele-ICU Consult ---
History of Present Illness History of Present Illness Date Seen by Provider: Jul 15, 2022 Time Seen by Provider: 18:32 Date of Admission History of Present Illness (Tele-ICU Physician , consultation as per request of PCP Service provided via interactive audio and video telecommunMoy [facility] system to a patient admitted to ICU bed in [facility]. Available chart/ vitals / labs / Images reviewed H&P is from ER notes Patient's information available about PMH, Shx, Fhx allergy reviewed inEMR. ROS as per chart and RN report Now in ICU, hemodynamically stable Video assessment done using teleICU camera, rest of exam as per RN Discussed with RN. Hospital course: 07/15- 52 y/o male with suspected CVA A/P TIA left arm weakness and left tongue involvement now resolved with h/o CVA - MRI pending - BP control - taking off plavix recently - f/up by neurology on other hospital - RESUMED PFO -not repaired yet at present date - cards consulted Lines : , (Central Line Necessity Reviewed) Freeman: OG: Nutrition: Analgesia: Anxiety/ delirium VTE Prophylaxis: christine 40 Stress Ulcer Prophylaxis: Plans in collaboration with bedside consultants and IM MDs. Discussed with RN to reach out if any questions or concerns A total of _15 minutes of critical care time was devoted to this patient today, required to treat and/or prevent further deterioration of critical care condition ( as above ) . I am remotely monitoring this patient from another state. I am unable to do the bedside exam, and history/physical and pertinent information is taken from other notes in the computer and bedside staff. . Allergies and Home Medications Allergies Coded Allergies: atorvastatin (Verified Allergy, Unknown, 07/15/22) Home Medications Aspirin 325 Mg Tablet.dr, 325 MG PO DAILY, (Reported) Past Medical/Social/Family Hx Patient Social History Tobacco Use?: No Use of E-Cig and/or Vaping dev: No Substance use?: No Alcohol Use?: No Pt stated abuse/neglect: No Current Status Advance Directives: No Communicates: Verbally Primary Language: Nigerien Is interpretation needed?: No Review of Systems Constitutional: see HPI Focused Exam Height, Weight, BMI Height: '" Weight: lbs. oz. kg; 26.71 BMI Method: Exam Exam Patient acknowledged, consented, and participated in this virtual visit which was conducted using real time audio/video Vital Signs Date Time Temp Pulse Resp B/P (MAP) Pulse Ox O2 Delivery O2 Flow Rate FiO2 07/15/22 18:00 62 18 115/77 (90) 97 Room Air 07/15/22 17:00 63 118/72 (86) 100 Room Air 07/15/22 16:00 63 110/87 (94) 100 Room Air 07/15/22 15:58 65 96 21 07/15/22 15:19 65 20 119/76 (90) 96 Room Air 07/15/22 15:18 72 07/15/22 15:05 Room Air Height & Weight Height: '" Weight: lbs. oz. kg; 26.71 BMI Method: General Appearance: Other Assessment/Plan Assessment/Plan 1 BREANNE HERRERA MD Jul 15, 2022 18:33
[2022-07-15] MEDS: CLOPIDOGREL 75 MG (PLAVIX) TABLET PO SCH (18:37)
[2022-07-15] MEDS: DOCUSATE SODIUM 100 MG (COLACE) CAP PO SCH (21:53)
[2022-07-15] MEDS: SENNOSIDES 8.6 MG (SENOKOT) TAB PO SCH (21:53)
[2022-07-16 04:54] LABS: BASOPHILS % (AUTO) 1 % (0-10); EOSINOPHILS # (AUTO) 0.1 10^3/uL (0.0-0.3); EOSINOPHILS % (AUTO) 2 % (0-10); HEMATOCRIT 40 % (40-54); LYMPHOCYTES # (AUTO) 1.7 10^3/uL (1.0-4.0); LYMPHOCYTES % (AUTO) 29 % (12-44); MEAN CORPUSCULAR HEMOGLOBIN 31 pg (25-34); MEAN CORPUSCULAR HGB CONC 35 g/dL (32-36); MEAN CORPUSCULAR VOLUME 89 fL (80-99); MEAN PLATELET VOLUME 11.4 fL (9.0-12.2); MONOCYTES # (AUTO) 0.6 10^3/uL (0.0-1.0); MONOCYTES % (AUTO) 10 % (0-12); NEUTROPHILS # (AUTO) 3.3 10^3/uL (1.8-7.8); NEUTROPHILS % (AUTO) 58 % (42-75); PLATELET COUNT 247 10^3/uL (130-400); WHITE BLOOD COUNT 5.8 10^3/uL (4.3-11.0)
[2022-07-16 05:21] LABS: ALBUMIN 3.5 GM/DL (3.2-4.5); BILIRUBIN,TOTAL 0.6 MG/DL (0.1-1.0); CALCIUM 8.7 MG/DL (8.5-10.1); CREATININE SERUM 1.23 MG/DL (0.60-1.30); PHOSPHORUS 2.9 MG/DL (2.3-4.7); POTASSIUM 3.9 MMOL/L (3.6-5.0)
[2022-07-16] MEDS ORDERED: POTASSIUM CL 10MEQ/50ML IVPB 50 ML IV SCH (06:00)
[2022-07-16] MEDS ORDERED: KCL 20 MEQ TAB (K-DUR) PO SCH (06:00)
[2022-07-16] MEDS ORDERED: MAGNESIUM 1 GM/100 ML IVPB 100 ML IV SCH (06:00)
[2022-07-16] MEDS ORDERED: NS 100 ML (IVPB) BAG IV ONE (06:30)
[2022-07-16] MEDS ORDERED: HOLD METFORMIN - RECEIVED CONTRAST 20 ML VIAL IV SCH (06:30)
[2022-07-16] MEDS ORDERED: IOHEXOL 350 MG/ML 100 ML (OMNIPAQUE 350) VIAL IV ONE (06:30)
[2022-07-16] MEDS ORDERED: KCL 20 MEQ TAB (K-DUR) PO ONE (08:00)
--- NOTE | 2022-07-16 08:48 | Consultation-Cardiology ---
HPI-Cardiology Cardiology Consultation Date of Consultation 07/16/22 Date of Admission Time Seen by Provider: 08:42 Indication: Acute CVA HPI 52-year-old gentleman with a history of CVA. Had extensive work-up in the past including hypercoagulable work-up, CT angiogram and JAYDEN. Aneurysmal intra- atrial septum with bidirectional shunt was identified. Patient was referred for ASD closure. Part of the work-up was referring him for neurology evaluation. Work-up was in progress. He has stopped his Plavix and continued on aspirin. Holter monitor did not show any significant arrhythmia Patient had another CVA with numbness on his face and tongue and his left arm. Resolved at this time. Had MRI showed small acute CVA. Home Medications & Allergies Allergies: Coded Allergies: atorvastatin (Verified Allergy, Unknown, 07/15/22) Home Medication List Reviewed: Yes TXI-Mqnlcm-Pdtxwf Hx Patient Social History Marital Status: Employed/Student: employed Smoking Status: Never a Smoker Type Used: Smokeless Tobacco Alcohol Use?: No Past Medical History Discussed below Family Medical History Significant Family History: No Pertinent Family Hx, Heart Disease Review of Systems-General Review of Systems Constitutional: see HPI, dizziness, malaise, weakness EENTM: see HPI Respiratory: see HPI Cardiovascular: see HPI Gastrointestinal: see HPI Genitourinary: see HPI Musculoskeletal: see HPI Skin: see HPI Psychiatric/Neurological: Weakness Reviewed Test Results Reviewed Test Results Lab Laboratory Tests Test 07/15/22 15:42 07/16/22 03:48 Range/Units Triglycerides Level 48 <150 MG/DL Cholesterol Level 202 H < 200 MG/DL LDL Cholesterol Direct 148 H 1-129 MG/DL VLDL Cholesterol 10 5-40 MG/DL HDL Cholesterol 47 40-60 MG/DL White Blood Count 5.8 4.3-11.0 10^3/uL Red Blood Count 4.53 4.30-5.52 10^6/uL Hemoglobin 14.0 13.3-17.7 g/dL Hematocrit 40 40-54 % Mean Corpuscular Volume 89 80-99 fL Mean Corpuscular Hemoglobin 31 25-34 pg Mean Corpuscular Hemoglobin Concent 35 32-36 g/dL Red Cell Distribution Width 13.3 10.0-14.5 % Platelet Count 247 130-400 10^3/uL Mean Platelet Volume 11.4 9.0-12.2 fL Immature Granulocyte % (Auto) 0 % Neutrophils (%) (Auto) 58 42-75 % Lymphocytes (%) (Auto) 29 12-44 % Monocytes (%) (Auto) 10 0-12 % Eosinophils (%) (Auto) 2 0-10 % Basophils (%) (Auto) 1 0-10 % Neutrophils # (Auto) 3.3 1.8-7.8 10^3/uL Lymphocytes # (Auto) 1.7 1.0-4.0 10^3/uL Monocytes # (Auto) 0.6 0.0-1.0 10^3/uL Eosinophils # (Auto) 0.1 0.0-0.3 10^3/uL Basophils # (Auto) 0.0 0.0-0.1 10^3/uL Immature Granulocyte # (Auto) 0.0 0.0-0.1 10^3/uL Sodium Level 138 135-145 MMOL/L Potassium Level 3.9 3.6-5.0 MMOL/L Chloride Level 110 H 98-107 MMOL/L Carbon Dioxide Level 21 21-32 MMOL/L Anion Gap 7 5-14 MMOL/L Blood Urea Nitrogen 13 7-18 MG/DL Creatinine 1.23 0.60-1.30 MG/DL Estimat Glomerular Filtration Rate 70 BUN/Creatinine Ratio 11 Glucose Level 81 70-105 MG/DL Calcium Level 8.7 8.5-10.1 MG/DL Corrected Calcium 9.1 8.5-10.1 MG/DL Phosphorus Level 2.9 2.3-4.7 MG/DL Magnesium Level 2.0 1.6-2.4 MG/DL Total Bilirubin 0.6 0.1-1.0 MG/DL Aspartate Amino Transf (AST/SGOT) 21 5-34 U/L Alanine Aminotransferase (ALT/SGPT) 21 0-55 U/L Alkaline Phosphatase 44 40-136 U/L Total Protein 6.0 L 6.4-8.2 GM/DL Albumin 3.5 3.2-4.5 GM/DL Physical Exam Physical Exam Vital Signs Vital Signs - First Documented 07/15/22 07/15/22 07/15/22 07/15/22 07/15/22 07/16/22 15:05 15:18 15:19 15:58 21:00 08:33 Temp 36.7 Pulse 72 Resp 20 B/P (MAP) 119/76 (90) Pulse Ox 96 O2 Delivery Room Air O2 Flow Rate 0.00 FiO2 21 Capillary Refill : Less Than 3 Seconds Height, Weight, BMI Height: '" Weight: lbs. oz. kg; 26.71 BMI Method: General Appearance: No Apparent Distress, WD/WN Eyes: Bilateral Eye Normal Inspection, Bilateral Eye PERRL HEENT: PERRL/EOMI, Normal ENT Inspection, Pharynx Normal Neck: Full Range of Motion, Normal Inspection, Non Tender, Supple, Carotid Bruit Respiratory: Chest Non Tender, Lungs Clear, Normal Breath Sounds, No Accessory Muscle Use, No Respiratory Distress Cardiovascular: Regular Rate, Rhythm, No Edema, No Gallop, No JVD, No Murmur, Normal Peripheral Pulses Gastrointestinal: Normal Bowel Sounds, No Organomegaly, No Pulsatile Mass, Non Tender, Soft Back: Normal Inspection, No CVA Tenderness, No Vertebral Tenderness Extremity: Normal Capillary Refill, Normal Inspection, Normal Range of Motion, Non Tender, No Calf Tenderness, No Pedal Edema Neurologic/Psychiatric: Alert, Oriented x3, Normal Mood/Affect, Motor Weakness (Subtle left hand weakness) Skin: Normal Color, Warm/Dry Lymphatic: No Adenopathy A/P-Cardiology Admission Diagnosis Recurrence cryptogenic stroke Hyperlipidemia Aphasia Assessment/Plan Recurrent acute CVA. Cryptogenic. Unknown etiology Underwent extensive work-up, has aneurysmal intra-atrial septum with bidirectional shunt Holter monitor did not show any arrhythmia I will proceed with loop monitor implantation and restart aspirin and Plavix. MRI with contrast reported as an old left posterior MCA infarct. 2 acute microinfarct appear in the right frontal lobe and left posterior parieto- occipital lobe. The bilateral nature suggests an embolic phenomena. Most probably secondary to the PFO. Underlying atrial fibrillation cannot be excluded. I will proceed with loop monitor implantation. JAYDEN done in February 2022 showed dilated left atrium, mild to moderate mitral regurgitation, normal left ventricular function, aneurysmal intra-atrial septum with bidirectional shunt. Hyperlipidemia, adding Lipitor and monitor Aphasia, significantly improved since January. Still have subtle aphasia KT ALMENDAREZ MD Jul 16, 2022 08:48
[2022-07-16] MEDS ORDERED: ASPIRIN E.C. 81 MG (ECOTRIN) TAB PO SCH (09:00)
[2022-07-16] MEDS ORDERED: CLOPIDOGREL 75 MG (PLAVIX) TABLET PO SCH (09:00)
[2022-07-16] MEDS: DOCUSATE SODIUM 100 MG (COLACE) CAP PO SCH (09:28)
[2022-07-16] MEDS: SENNOSIDES 8.6 MG (SENOKOT) TAB PO SCH (09:28)
[2022-07-16] MEDS: CLOPIDOGREL 75 MG (PLAVIX) TABLET PO SCH (09:28)
--- NOTE | 2022-07-16 09:52 | Diagnostic Imaging Report ---
PROCEDURE: CT angiography of the head and CT angiography of the neck with and without contrast. TECHNIQUE: Contiguous noncontrast images were obtained from the skull base through the vertex. After intravenous contrast administration, helical CT angiography of the neck was performed. Source data was reformatted into 3D MIP projections. Delayed post contrast acquisition was also obtained. Auto Exposure Controls were utilized during the CT exam to meet ALARA standards for radiation dose reduction. INDICATION: Acute on chronic infarcts. COMPARISON with outside CT angiogram head neck performed at [facility] 03/06/2021 as well as correlated with brain MRI one day prior. CT HEAD: Precontrast and delayed postcontrast enhanced head CT performed. When compared with the prior CT, there has been expected interval evolutionary changes of left posterior parietal ischemic infarct as a chronic finding. The punctate microinfarcts present at earlier MRI are imperceptible at this exam. No hemorrhage. There is normal enhancement of the major dural venous sinuses. No abnormal or suspicious parenchymal or meningeal enhancement found. No evidence for mass. CT ANGIOGRAM NECK: The right vertebral dominant, the left is small but appeared nonfocal and unchanged from the previous exam. The bilateral common carotids patent. The carotid bulbs and bifurcations patent. The major external carotid branches unremarkable. The cervical internal carotids were patent and unremarkable. No substantial or perceptible cervical atherosclerotic plaques, luminal irregularity, dissection occlusion or aneurysm. CT ANGIOGRAM HEAD: The intracranial ICAs are widely patent. There is minimal non-stenosing calcified plaques eccentrically at their cavernous segments. The A1 segments are patent bilaterally. The ACOM identified. The anterior cerebral arteries distal to the ACOM appeared symmetric and were well-opacified. The bilateral middle cerebral arterial segments and primary branches widely patent. The PCOMs are patent bilaterally with flow into the bilateral patent wharf hand via the anterior circulation bilaterally with a diminutive but nonfocal and unchanged intracranial basilar, intrathecal vertebral segments patent. No large vessel occlusion, thrombus, aneurysm or vascular malformation. IMPRESSION: Expected interval evolutionary changes of known remote left parietal cortical infarct. The new micro-infarcts are imperceptible at CT and there is no hemorrhage or visible cerebral edema. CT angiographic study of the neck stable and unremarkable. CT angiographic study of the head stable and unremarkable with origin of the bilateral wharf hand noted incidentally. Trace intracranial carotid calcified atherosclerotic disease. No significant cervical atherosclerosis. Given multiple documented infarcts correlate with any risk factors for embolic disease. Dictated by: Dictated on workstation # [id number]
[2022-07-16] MEDS ORDERED: LIDOCAINE 1% INJ 20 ML VIAL ONE (09:58)
--- NOTE | 2022-07-16 10:20 | Physical Therapy Progress Note ---
Therapy Progress Note Per patient's nurse, patient is up ad modesto in room and doing well, no concerns with balance. Visited with patient and he just returned from toileting in ICU room (I). Pt. states he has no concerns for his mobility and feels he is at PLOF without the use of an AD. He states he was having some weakness in his L hand but it has fully resolved, no issues in LE's. Pt. and therapist agree no skilled PT intervention needed at this time. D/C PT. 1, visit only [id number] KELSI LIND PT Jul 16, 2022 10:20
[2022-07-16] MEDS ORDERED: ASPI-1238 PO (11:54)
[2022-07-16] MEDS ORDERED: CLOP75TA28 PO (11:54)
[2022-07-16] MEDS ORDERED: ALPR0.25 PO (11:54)
--- NOTE | 2022-07-16 11:56 | Discharge Summary ---
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 sent to [place] for possible neuro-intervention which was not needed Intolerant to statin therapy- listed Lipitor as allergy Anxiety Discharge Summary Discharge Physical Examination Allergies: Coded Allergies: atorvastatin (Verified Allergy, Unknown, 07/15/22) Vitals & I&Os Vital Signs Date Time Temp Pulse Resp B/P (MAP) Pulse Ox O2 Delivery O2 Flow Rate FiO2 07/16/22 12:00 62 18 98 Room Air 07/16/22 11:46 36.4 07/16/22 09:00 07/16/22 08:33 0.00 07/15/22 15:58 21 General Appearance: Alert, Oriented X3, Cooperative Respiratory: Clear to Auscultation Cardiovascular: Regular Rate Psych/Mental Status: Mental Status NL Hospital Course Was the Problem List Reviewed?: Yes Hospital course: Patient had a brief hospital course after he was admitted from [facility] following a recurrent stroke. MRI was done after anxiolytic was given and that showed embolic showering consistent with either a PFO or paroxysmal atrial fibrillation. He had just discontinued Plavix a few days before under neurology recommendations and maintained on aspirin 325 mg. He had stopped his Lipitor due to severe side effects and was not willing to go back on a statin. Dr. Tobar was consulted recommended loop recorder which patient was hesitant but will have follow-up with Dr. Tobar to have that placed. In-depth counseling was initiated and he wished to have something for his anxiety which was sent into [facility] along with Plavix 75 mg daily aspirin 81 mg daily and close follow-up with my office and the CT angiogram of the brain and MRI of the brain will be clouded to neurologist out of [facility]. Labs (last 24 hrs) Laboratory Tests 07/15/22 15:42: Triglycerides Level 48, Cholesterol Level 202H, LDL Cholesterol Direct 148H, VLDL Cholesterol 10, HDL Cholesterol 47 07/16/22 03:48: White Blood Count 5.8, Red Blood Count 4.53, Hemoglobin 14.0, Hematocrit 40, Mean Corpuscular Volume 89, Mean Corpuscular Hemoglobin 31, Mean Corpuscular Hemoglobin Concent 35, Red Cell Distribution Width 13.3, Platelet Count 247, Mean Platelet Volume 11.4, Immature Granulocyte % (Auto) 0, Neutrophils (%) (Auto) 58, Lymphocytes (%) (Auto) 29, Monocytes (%) (Auto) 10, Eosinophils (%) (Auto) 2, Basophils (%) (Auto) 1, Neutrophils # (Auto) 3.3, Lymphocytes # (Auto) 1.7, Monocytes # (Auto) 0.6, Eosinophils # (Auto) 0.1, Basophils # (Auto) 0.0, Immature Granulocyte # (Auto) 0.0, Sodium Level 138, Potassium Level 3.9, Chlo ride Level 110H, Carbon Dioxide Level 21, Anion Gap 7, Blood Urea Nitrogen 13, Creatinine 1.23, Estimat Glomerular Filtration Rate 70, BUN/Creatinine Ratio 11, Glucose Level 81, Calcium Level 8.7, Corrected Calcium 9.1, Phosphorus Level 2.9, Magnesium Level 2.0, Total Bilirubin 0.6, Aspartate Amino Transf (AST/SGOT) 21, Alanine Aminotransferase (ALT/SGPT) 21, Alkaline Phosphatase 44, Total Protein 6.0L, Albumin 3.5 Microbiology 07/15/22 MRSA Screen - Final, Complete MRSA not isolated Pending Labs Microbiology Date/Time Source Procedure Growth Status 07/15/22 15:20 Nasal MRSA Screen - Final MRSA not isolated Complete Laboratory Tests 07/15/22 15:42: Triglycerides Level 48, Cholesterol Level 202, LDL Cholesterol Direct 148, VLDL Cholesterol 10, HDL Cholesterol 47 07/16/22 03:48: White Blood Count 5.8, Red Blood Count 4.53, Hemoglobin 14.0, Hematocrit 40, Mean Corpuscular Volume 89, Mean Corpuscular Hemoglobin 31, Mean Corpuscular Hemoglobin Concent 35, Red Cell Distribution Width 13.3, Platelet Count 247, Mean Platelet Volume 11.4, Immature Granulocyte % (Auto) 0, Neutrophils (%) (Auto) 58, Lymphocytes (%) (Auto) 29, Monocytes (%) (Auto) 10, Eosinophils (%) (Auto) 2, Basophils (%) (Auto) 1, Neutrophils # (Auto) 3.3, Lymphocytes # (Auto) 1.7, Monocytes # (Auto) 0.6, Eosinophils # (Auto) 0.1, Basophils # (Auto) 0.0, Immature Granulocyte # (Auto) 0.0, Sodium Level 138, Potassium Level 3.9, Chloride Level 110, Carbon Dioxide Level 21, Anion Gap 7, Blood Urea Nitrogen 13, Creatinine 1.23, Estimat Glomerular Filtration Rate 70, BUN/Creatinine Ratio 11, Glucose Level 81, Calcium Level 8.7, Corrected Calcium 9.1, Phosphorus Level 2.9, Magnesium Level 2.0, Total Bilirubin 0.6, Aspartate Amino Transf (AST/SGOT) 21, Alanine Aminotransferase (ALT/SGPT) 21, Alkaline Phosphatase 44, Total Protein 6.0, Albumin 3.5, Luteinizing Hormone [Pending], Testosterone Level [Pending] Discharge Home Medications: Active Scripts Active Xanax (Alprazolam) 0.25 Mg Tablet 0.25 Mg PO Q6H PRN Clopidogrel (Clopidogrel Bisulfate) 75 Mg Tablet 75 Mg PO DAILY Aspirin EC (Aspirin) 81 Mg Tablet.dr 81 Mg PO DAILY Instructions to patient/family Please see electronic discharge instructions given to patient. ZENON BRITTON DO Jul 16, 2022 11:56
== END 2022-07-16 13:40 | disposition home or self-care (01) | DRG 65 ==
LOC: ICU 13:59
PROVIDERS: ADMIT Internal Medicine; ATTEND Internal Medicine
DX: I63.442 Cerebral infarction due to embolism of left cerebellar artery (principal); Q21.12 Patent foramen ovale; I48.0 Paroxysmal atrial fibrillation; G83.24 Monoplegia of upper limb affecting left nondominant side; Z79.82 Long term (current) use of aspirin; R20.0 Anesthesia of skin; E78.5 Hyperlipidemia, unspecified; R13.0 Aphagia; R29.700 NIHSS score 0
CPT/HCPCS: 36415; 70496; 70498; 70553; 80053; 80061; 83002; 83735; 84100; 84403; 85025; 87081; G0378

== ENCOUNTER → 2022-09-21 | Outpatient (CLI) | payer BC ==
[~2022-09-21] MED LIST changes: +ALPR0.25 PO; +ASPI-1238 PO; +ASPI325T32 PO; +CLOP75TA28 PO
[2022-09-21 12:17] VITALS: BP 159/88
== END ==
LOC: CARD 11:00
PROVIDERS: ATTEND Internal Medicine Cardiovascular Disease
DX: I10 Essential (primary) hypertension (principal); I25.10 Atherosclerotic heart disease of native coronary artery without angina pectoris; I63.9 Cerebral infarction, unspecified

== ENCOUNTER → 2022-09-21 | Day surgery (SDC) | payer BC ==
[~2022-09-21] VITALS: Ht 182.8 cm; Wt 87.7 kg
[~2022-09-21] MED LIST changes: +LIDOCAINE 1% INJ 20 ML VIAL INJ ONE; +LIDOCAINE 1% INJ 20 ML VIAL ONE
--- NOTE | 2022-09-21 14:06 | Implantation of Loop Monitor ---
Implant of Loop Monitior IMPLANTATION OF LOOP MONITOR REPORT DATE OF PROCEDURE: 09/21/22 PREOP DIAGNOSIS: Cryptogenic stroke POSTOP DIAGNOSIS: Cryptogenic stroke PROCEDURE DETAILS: The patient is a 52 male with history of paroxysmal atrial fibrillation requiring long-term surveillance. Therefore implantable loop recorder was discussed and agreed with the patient. Informed consent was taken. All risks and complications were discussed at length. The patient was draped and prepped in the usual sterile fashion. Local anesthesia was lidocaine, which was given in the substernal area close to the 4th intercostal space. Loop monitor [employer] with serial number [id number] was implanted according to the protocol. Steri- Strips were placed at the end of the procedure. There were no complications and the patient tolerated the procedure well. ANESTHESIA: Local anesthesia with lidocaine. COMPLICATIONS: None CONTRAST/FLUOROSCOPY: None CONCLUSION: Successful implantation of loop monitor with no complication FINAL DIAGNOSIS: Cryptogenic stroke Palpitation KT ALMENDAREZ MD Sep 21, 2022 14:06
== END ==
LOC: CATH 11:01
PROVIDERS: ATTEND Internal Medicine Cardiovascular Disease
DX: I63.9 Cerebral infarction, unspecified (principal); R00.2 Palpitations; I34.0 Nonrheumatic mitral (valve) insufficiency; I11.9 Hypertensive heart disease without heart failure; Z86.69 Personal history of other diseases of the nervous system and sense organs; Z86.73 Personal history of transient ischemic attack (TIA), and cerebral infarction without residual deficits; Z28.310 Unvaccinated for COVID-19; Z87.891 Personal history of nicotine dependence
CPT/HCPCS: 33285; C1764